=== PATIENT | female | born 1945 | race American Indian/Alaskan Native ===

== ENCOUNTER 2018-08-13 12:30 | Emergency (ER) | payer BC, OTHER ==
[~2018-08-13] VITALS: Ht 160 cm; Wt 97.7 kg
[~2018-08-13 12:30] MED LIST: ASPIR-LOW81 MG PO; BACTRIM DS TAB1 EACH PO; CALCIUM + VITA1 EACH PO; FERROUS SULFAT325 MG; GLUCOPHAGE XR500 MG; GLUCOPHAGE500 MG PO; LANTUS SOL100 UNIT/1 SUB-Q; LIPITOR20 MG PO; NORCO 5-325 TA1 EACH PO; OMEPRAZOLE20 MG PO
[2018-08-13] MEDS ORDERED: FLAGYL500 MG PO (15:32)
[2018-08-13] MEDS ORDERED: LOMOTIL TABLET1 EACH PO (15:33)
== END 2018-08-13 15:50 | disposition home or self-care (01) ==
LOC: ED 12:30
DX: R19.7 Diarrhea, unspecified (principal); E11.9 Type 2 diabetes mellitus without complications; D64.9 Anemia, unspecified; Z88.8 Allergy status to other drugs, medicaments and biological substances; Z88.5 Allergy status to narcotic agent; Z88.6 Allergy status to analgesic agent; Z91.041 Radiographic dye allergy status; Z91.09 Other allergy status, other than to drugs and biological substances; Z79.4 Long term (current) use of insulin; Z79.82 Long term (current) use of aspirin; Z79.899 Other long term (current) drug therapy
CPT/HCPCS: 36415; 74022; 80053; 81001; 83690; 85025; 87045; 87046; 87205; 87493; 96360; 99284-25; J7030

== ENCOUNTER 2018-10-19 08:45 | Day surgery (SDC) | payer BC, OTHER ==
[~2018-10-19] VITALS: Ht 160 cm; Wt 104.3 kg
[~2018-10-19 08:45] MED LIST changes: +B-12 DOTS500 MCG PO; +COL-RITE100 MG PO; +FLAGYL500 MG PO; +LOMOTIL TABLET1 EACH PO; +MAGNESIUM250 MG PO; +METOPROLOL TART25 MG PO; +NAPROXEN250 MG PO; +OCEAN BLUE OME350 MG PO; +OCUFLOX5 ML OPTH; +SLOW RELEASE I250 MG PO; +VITAMIN C250 MG PO
--- NOTE | 2018-10-19 10:49 | NUR ---
10/19/18 1049 Sheets,Michaelle 1029 PT ARRIVED TO PACU WITH ORAL AIRWAY IN PLACE AND 10L VIA MASK. PT REACTIVE TO PAINFUL STIMULI AND PT BEGINS TO COUGH. 1030 ORAL AIRWAY REMOVED. PT MOVING ARM WITH BP CUFF, PT UNABEL TO FOLLOW COMMANDS. PT REACHING FOR NOSE AND O2 MASK, RN CONTINES TO REORINT PT TO PACU. PT UNABEL TO OPEN HER EYES, RN HELP PT REDIRECT PT HANDS AWAY FROM FACE. 1036 PT SLIGHTLY MORE AWAKE BUT CONTINUES TO KEEP EYES CLOSED. O2 REMOVED. PT SAYD "BLOW NOSE." RN GIVEN PT TISSUE TO BLOW HER NOSE. RN REORINTED PT TO PACU. PT PULLS OFF O2 SAT, RN PUTS O2 SAT MONITOR BACK ON PT FINGER. 1040 PT DENIES PAIN AND NAUSEA, PT VERY DROWSY AND UNABLE TO KEEP EYES OPEN, RN AGAIN REORITNED PT PACU.
--- NOTE | 2018-10-20 07:29 | OR ---
[facility] [address], [place] [address] Signed DATE OF OPERATION: 10/19/2018 SURGEON: Aleisha Ledesma MD PREOPERATIVE DIAGNOSIS: Recurrent iron deficiency anemia. POSTOPERATIVE DIAGNOSES: 1. Mild patchy hemorrhagic gastritis. 2. Small to moderate sized hiatal hernia. 3. 5 mm polyps at 85, 72, 70, 68, 55, 30, and 10 cm. 4. Minimal moderate internal and external hemorrhoids. PROCEDURES: 1. Esophagogastroduodenoscopy with CLOtest and biopsies of the antrum. 2. Colonoscopy with hot biopsy. ESTIMATED BLOOD LOSS: None. INDICATIONS: Vero is a 73-year-old female, who has recurrent iron deficiency anemia. She has been on iron therapy. She had a full evaluation with [facility] and [facility] in 2004 including upper and lower endoscopy and capsule endoscopy. In 2012 when she had recurrent iron-deficiency anemia. She had repeat upper and lower endoscopy which were unremarkable. She has received IV iron therapy and that helped significantly. She thought she had vaginal bleeding back in 2012, but to her knowledge, never saw a radiology director nor had a hysterectomy. At that time, her hemoglobin was just over 7. It is now just over 11. She does use aspirin on a daily basis for her coronary artery disease. However, I do not see any medication for the stomach neither an H2 magdalene nor a proton pump inhibitor. She also had a CABG with three bypass grafts in 2017. It is not uncommon for patients to be anemic after coming off bypass pump. She also has a lifelong 2/6 systolic ejection murmur and she said it has never bothered her with activities. I am sure she has had an echocardiogram with a cardiac evaluation in the past. Nevertheless, cardiac murmurs can certainly result in anemia. In the office, I had given Vero a booklet on both upper and lower endoscopy. We did review the nature of the 2 tests along with the risks including, but not limited to gas, bloating, crampy abdominal pain, bleeding, perforation, requiring surgery, and missed diagnosis. We also discussed the need for IV conscious sedation. Given her body mass index of 40 and her significant medical issues along with a very full round face, very thick, heavy neck as Electronically Signed By: ALEISHA LEDESMA MD 10/20/18 0729 PATIENT NAME: VERO ROBLES ANN OPERATIVE REPORT DATE OF : 47 REPORT #: [id number] PHYSICIAN: ALEISHA LEDESMA MD PCP: OTHER PCP REPORT IS CONFIDENTIAL AND NOT TO BE RELEASED WITHOUT AUTHORIZATION [address] [address] Signed well as limited range of motion of her neck, we asked for an anesthesia provider to help us with an increased monitoring and sedation with propofol as we have previously. She had expressed understanding and wished to proceed. PROCEDURE NOTE: Vero was taken into endoscopy suite and placed in the supine semi-recumbent position. The posterior oropharynx was anesthetized with Hurricaine spray. A bite block was utilized for the case. She was given IV sedation with propofol per our nurse child nutrition director. The adult gastroscope was introduced and advanced out into the third portion of the duodenum under direct visualization of camera without difficulty. The duodenum was unremarkable. She did have some patchy erythematous changes in the stomach consistent with mild hemorrhagic gastritis. No ulcerations. We took biopsies from the antrum for pathologic review as well as CLOtest. Upon retroflexion of the scope, she has a small to moderate sized hiatal hernia as always. No Doni ulceration. No Hannah-Wilson tear. There are no gastric or esophageal varices. The scope was withdrawn up through the area of the GE junction, which was compliant without stricture. The Z-line shows very minimal disruption. There was no Velez's mucosa, no distal esophagitis. The middle and upper esophagus were unremarkable. After this the gas was suctioned out and the gastroscope removed. Vero tolerated the procedure quite well. Vero was then rotated into the left lateral decubitus position. She was maintained on IV sedation with propofol per our nurse child nutrition director. A digital rectal exam was performed and she does have some small to moderate sized external hemorrhoids. She has good sphincter tone. The adult colonoscope was introduced and advanced all around into the cecum under direct visualization of camera without difficulty. She had a couple of areas of liquid particulate stool matter. Most of that was suctioned out. The scope was slowly withdrawn. The above-mentioned polyps were easily removed with the help of hot biopsy forceps. We saw no diverticulosis. Upon retroflexion of the scope, she does have some minimal to moderate internal hemorrhoids as well. No obvious irritation at this time. After this, the gas was suctioned out. The colonoscope removed. Vero tolerated the lower endoscopy quite well. RECOMMENDATIONS: I will see Vero back in my office in 7 to 14 days to review her results. Aleisha Ledesma MD ALB/MODL Electronically Signed By: ALEISHA LEDESMA MD 10/20/18 0729 PATIENT NAME: VERO ROBLES ANN OPERATIVE REPORT DATE OF : 47 REPORT #: [id number] PHYSICIAN: ALEISHA LEDESMA MD PCP: OTHER PCP REPORT IS CONFIDENTIAL AND NOT TO BE RELEASED WITHOUT AUTHORIZATION [address] [place], [place] [address] Signed /[id number] cc: MD Tejal Summers PA Copies: ALEISHA LEDESMA MD, KRISTIN H PA ~ Electronically Signed By: ALEISHA LEDESMA MD 10/20/18 0729 PATIENT NAME: VERO ROBLES ANN OPERATIVE REPORT DATE OF : 47 REPORT #: [id number] PHYSICIAN: ALEISHA LEDESMA MD PCP: OTHER PCP REPORT IS CONFIDENTIAL AND NOT TO BE RELEASED WITHOUT AUTHORIZATION
== END 2018-10-19 11:23 | disposition home or self-care (01) ==
LOC: DS 08:45 → OPS 08:45
PROVIDERS: Colon & Rectal Surgery
PROC: 0DB78ZX Excision of Stomach, Pylorus, Via Natural or Artificial Opening Endoscopic, Diagnostic (ICD-10-PCS; 2018-10-19)
PROC: 0DBE8ZZ Excision of Large Intestine, Via Natural or Artificial Opening Endoscopic (ICD-10-PCS; principal; 2018-10-19 09:45)
PROC: 0DBP8ZZ Excision of Rectum, Via Natural or Artificial Opening Endoscopic (ICD-10-PCS; 2018-10-19 09:45)
DX: D12.6 Benign neoplasm of colon, unspecified (principal); D12.8 Benign neoplasm of rectum; K63.5 Polyp of colon; K64.8 Other hemorrhoids; E66.9 Obesity, unspecified; K64.4 Residual hemorrhoidal skin tags; K44.9 Diaphragmatic hernia without obstruction or gangrene; K29.51 Unspecified chronic gastritis with bleeding; D50.9 Iron deficiency anemia, unspecified; I10 Essential (primary) hypertension; K21.9 Gastro-esophageal reflux disease without esophagitis; E11.9 Type 2 diabetes mellitus without complications; G47.30 Sleep apnea, unspecified; I25.10 Atherosclerotic heart disease of native coronary artery without angina pectoris; I25.2 Old myocardial infarction; M19.90 Unspecified osteoarthritis, unspecified site; M54.9 Dorsalgia, unspecified; Z88.8 Allergy status to other drugs, medicaments and biological substances; Z88.6 Allergy status to analgesic agent; Z91.041 Radiographic dye allergy status; Z88.5 Allergy status to narcotic agent; Z79.899 Other long term (current) drug therapy; Z79.82 Long term (current) use of aspirin; Z79.84 Long term (current) use of oral hypoglycemic drugs; Z68.41 Body mass index [BMI] 40.0-44.9, adult; Z95.1 Presence of aortocoronary bypass graft
CPT/HCPCS: 86677; J2704; J7120

== ENCOUNTER 2020-07-25 11:07 | Inpatient (IN) | payer BC, MEDICARE, OTHER ==
[~2020-07-25] VITALS: Ht 160 cm; Wt 99.6 kg
[~2020-07-25 11:07] MED LIST changes: -ASPIR-LOW81 MG PO; +LO-DOSE ASPIRIN81 M1 PO
[2020-07-25] MEDS ORDERED: ATORVASTATIN CA80 MG PO (11:32)
--- NOTE | 2020-07-25 15:50 | NUR ---
Called to ED to get report from Isrrael GALINDO. Pt report included: Pt being admitted for SBO, confirmed by JAYDA. Caleb to consult. Pts hx was noted already, DMII-insulin dependent, HTN, Stable angina, hx CABG, hyperlipidemia, obesity, and vitamin D deficiency. Pt has been alert and oriented in the ED, and is a 1PSBA at baseline. Pt has NG tube in place at this time and has had 500mls out. Awaiting covid results before transfer. Will call us when they are ready to bring her over to this unit.
--- NOTE | 2020-07-25 16:00 | NUR ---
Pt delivered to room by Isrrael GALINDO from the ED. Pt alert but groggy, oriented x4, VSS. Pt complains of minimal pain in her nose from the NG tube. Pt later reports 7/10 pain in her abdomen that is intermittent. Pt had some nausea during transfer, which resolved nearly as soon as the suction was attached in room. Pt assessment complete and intake forms completed. Pt IV fluids started. Pt positioned in bed, to comfort. Pt educated on use of the call light and safety protocols. Pt in bed, side rails up x3, table and call light withn reach.
--- NOTE | 2020-07-25 17:50 | NUR ---
Med pass completed. Pt able to take all meds without difficulty. Pt CBG was 165 so 1 unit insulin given per sliding scale orders. Pt reports minmal pain in her abdomen. Pt still groggy, keeping her eyes closed most of the time and speaking very slowly and quietly. Pt denies nausea at this time. Pt VSS, pt in bed, side rails up x3, table and call light within reach. Pt saturation is 95% on RA and SCDs in place.
--- NOTE | 2020-07-25 18:16 | NUR ---
PT CALL LIGHT ON. PT REPORTS 8/10 "BURNING" PAIN IN UPPER MIDLINE ABDOMEN. SEE MAR FOR MEDICATION GIVEN. NG TUBE REMAINS IN PLACE TO LOW INTERMITTANT SUCTION. PT DENIES ADDTIONAL REUQESTS OR CMOPLAINTS AT THIS TIME. PT CONTINUES TO REPORT NASUEA. DRY HEAVES NOTED. SEE MAR FOR MEDICATION GIVEN. ORAL CARE DONE. MOUTH WASH PROVIDED. PT DENEIS ADDITIONAL REQUESTS OR COMPLAINTS. CALL LIGHT WITHIN REACH. BED RAILS UP.
--- NOTE | 2020-07-25 19:00 | NUR ---
RECEIVED REPORT FROM MATEO SANTOS. pt RESTING IN BED. NO REQUESTS AT THIS TIME. PROVIDED ORAL SWABS. CALL LIGHT WITHIN REACH. WHITEBOARD UPDATED.
--- NOTE | 2020-07-25 21:14 | NUR ---
IN TO DO ASSESSMENT. pt RESTING IN BED. DENIES PAIN AT THIS TIME. NG TUBE TO LIS. MARSHALL REMAINS AT LEFT NARE. BROWN OUTPUT. MEDICATIONS GIVEN (SEE MAR). VITALS DONE. BP RECHECKED POST IV LOPRESSOR. pt UP TO VOID. BACK TO BED. SBA. 50 NG FLUSH TO CLEAR TUBE. NGT BACK TO LIS. SCDS ON. IV INFUSING. ASSESSMENT DONE. PROVIDED ORAL SWABS. NO FURTHER REQUESTS WITHIN REACH. CALL LIGHT IN HAND.
--- NOTE | 2020-07-25 23:37 | CONS ---
[facility] [address] [place], [place] [address] Signed DATE OF CONSULTATION: 07/25/2020 CHIEF COMPLAINT: Periumbilical abdominal pain with nausea and vomiting. HISTORY OF PRESENT ILLNESS: Vero is a 75-year-old obese diabetic female with prior abdominal surgery to include an open cholecystectomy through a right subcostal incision as well as an open bilateral tubal ligation through a lower midline incision. For the last day and a half, she has had periumbilical and lower abdominal pain with nausea and vomiting. She went to the [facility] earlier today. She was obviously feeling under the weather and not as energetic as usual. Very difficult to assess her abdomen based on her body mass index. Consequently, she had been sent over to the [facility] emergency room for evaluation. Repeat white blood cell counts about the same 11.4. She also received her COVID vaccine back on 07/21/2020. In the meantime, CT scan has been performed and she does have a dilated small bowel about 6 cm in diameter with feculent material. The distal terminal ileum is decompressed. She has an infraumbilical incisional hernia about a 7 mm fascial defect with fat coming through it. I have been asked to see her as a general surgeon on-call here in the emergency room. In the meantime, our internal medicine service has seen her as well. She just had an NG tube placed and she has over 400 mL of moderately dark bilious gastric fluid removed. PAST MEDICAL HISTORY: Type 2 diabetes, GI bleed, anemia, hyperlipidemia, obesity, coronary artery disease, stress urinary incontinence, low vitamin D levels, low iron levels, hypertension, atrophic vaginitis, lower extremity edema, carpal tunnel syndrome, gastroesophageal reflux disease, obstructive sleep apnea, dry eyes, glaucoma and macular degeneration. PAST SURGICAL HISTORY: Includes upper and lower endoscopy in 2007, 2012 and 2018. She had her CABG in 2015, neck fusion in 2006, an open cholecystectomy through a right subcostal incision and open bilateral tubal ligation through a lower midline incision. She has had cataract surgery. SOCIAL HISTORY: She does not smoke or drink. She attends the [employer] with . Christian is her son at [phone]. FAMILY HISTORY: Mother had diabetes and uterine cancer. A sister had breast cancer. REVIEW OF SYSTEMS: She had 10 systems reviewed and unfortunately, she was not very helpful today. It seems Electronically Signed By: ALEISHA LEDESMA MD 07/25/20 2337 PATIENT NAME: VERO ROBLES CONSULTATION DATE OF : 47 REPORT #: [id number] PHYSICIAN: ALEISHA LEDESMA MD PCP: [facility] REPORT IS CONFIDENTIAL AND NOT TO BE RELEASED WITHOUT AUTHORIZATION [address] [address] Signed her energy levels are a bit low. Most of her records are reviewed from the [facility] as well as here in the emergency room. We know she did receive the COVID vaccine on 07/21/2020. ALLERGY: , pseudoephedrine., iodinated contrast, codeine, and NSAIDs apparently caused bleeding and clotrimazole. MEDICATIONS: 1. Insulin. 2. Calcium. 3. Vitamin D. 4. Aspirin. 5. Metformin. 6. Vitamin C. 7. Magnesium oxide. 8. Metoprolol. 9. Ofloxacin eyedrops. 10. Atorvastatin. 11. Zyrtec. 12. Iron. 13. Vitamin B12. 14. Moorcroft-3. 15. Potassium chloride. PHYSICAL EXAMINATION: VITAL SIGNS: Her blood pressure is 158/63, heart rate 73, respiratory rate 16, temperature is 98.4. She is 98% on room air she is 5 feet 3 inches at 92 kg. GENERAL: Vero is a 75-year-old female sitting supine semi-recumbent in the ER bed. Her NG tube Is in place with moderately dark bilious gastric fluid in the canister, probably 400 mL or so. She really was not wanting to open her eyes or talk much. LUNGS: Clear to auscultation bilaterally. HEART: Regular rate and rhythm without murmurs. ABDOMEN: Obese but soft. She points to tenderness actually in the epigastric area currently. LABORATORY DATA: Her white blood count is 11.4, hemoglobin 13 neutrophils 89. BUN 20, creatinine 0.66, glucose 243. Liver function tests are negative. Albumin is 4.2, lipase 6. Troponin is negative. Urinalysis negative. Her COVID is pending. Her hemoglobin A1c was 8.9. RADIOGRAPHIC STUDIES: A CT scan of the abdomen and pelvis shows that she has a normal decompressed terminal ileum, but the jejunum and proximal small bowel is distended up to 6 cm with feces. She Electronically Signed By: ALEISHA LEDESMA MD 07/25/20 4138 PATIENT NAME: VERO ROBLES ANN CONSULTATION DATE OF : 47 REPORT #: [id number] PHYSICIAN: ALEISHA LEDESMA MD PCP: [facility] REPORT IS CONFIDENTIAL AND NOT TO BE RELEASED WITHOUT AUTHORIZATION [address] [address] Signed also has an infraumbilical hernia containing fat about 7 mm fascial defect. ASSESSMENT AND PLAN: Vero is a 75-year-old female, who presents with small bowel obstruction, most likely from the open bilateral tubal ligation. At this point, she is going to be admitted and treated conservatively with NG tube decompression, IV fluids, pain control, and I think we will go ahead and start some antibiotics as well. We will reassess her in the morning and if she does not improve in the next day or two, she will need surgery to address the small bowel obstruction. I have reviewed this with Vero in detail. She has expressed understanding and agrees with the above plan. MD MONSERRAT Summers/JUDITH /[id number] cc: Copies: ~ Electronically Signed By: ALEISHA LEDESMA MD 07/25/20 2337 PATIENT NAME: VERO ROBLES ANN CONSULTATION DATE OF : 47 REPORT #: [id number] PHYSICIAN: ALEISHA LEDESMA MD PCP: [facility] REPORT IS CONFIDENTIAL AND NOT TO BE RELEASED WITHOUT AUTHORIZATION
--- NOTE | 2020-07-25 23:49 | NUR ---
IN TO CHECK ON pt AND REMOVE NITRO PATCH. pt REPORTED 6/10 PAIN. NITRO PATCH REMOVED FROM LEFT SHOULDER, PRN PAIN MEDICATION GIVEN (SEE MAR). pt FEELING NAUSEOUS, VOMITTED. FLUSHED NG TUBE, OUTPUT THICK REQUIRED FLUSH TO MOVE THROUGH TUBE. pt REPORTED NAUSEA GONE AFTER FLUSHING. pt UP TO TOILET. LINENS CHANGED. BACK TO BED. SBA. SETTLED IN BED. OUTPUT MOVING IN NG TUBE. pt REQUESTED PRN NAUSEA MEDICATION. GIVEN (SEE MAR). CALL LIGHT WITHIN REACH.
--- NOTE | 2020-07-26 00:18 | NUR ---
CALL LIGHT ON. pt REPORTED NAUSEA. FLUSHED NG TUBE, pt REPORTED IMPROVEMENT IN NAUSEA WITH FLUSHING. NG TUBE ON LIS. CALL LIGHT WITHIN REACH.
--- NOTE | 2020-07-26 00:55 | NUR ---
CALL LIGHT ON. pt REPORTED NAUSEA "ON AND OFF" FLUSHED NG TUBE. PRN NAUSEA MED GIVEN (SEE MAR). pt REPORTED "MY PAIN WENT DOWN." DENIES NEED FOR PAIN MEDICATION AT THIS TIME. CALL LIGHT WITHIN REACH. IVF INFUSING. NGT TO LIS.
--- NOTE | 2020-07-26 02:17 | NUR ---
IN TO GIVE MEDICATIONS. pt VERY DROWSY, RESPONDED APPROPRIATELY. BLOOD SUGAR WITHIN RANGE. IV BP MED GIVEN (SEE MAR). VITALS DONE. ASSESSMENT DONE. pt DENIES NAUSEA AND PAIN AT THIS TIME. NO REQUESTS CALL LIGHT WITHIN REACH.
--- NOTE | 2020-07-26 03:33 | NUR ---
CALL LIGHT ON. pt REQUESTED PRN PAIN MEDS FOR 8/10 PAIN, GIVEN (SEE MAR). NO FURTHER REQUESTS AT THIS TIME. CALL LIGHT WITHIN REACH. NG TUBE TO LIS, NO CHANGE NOTED IN PLACEMENT.
--- NOTE | 2020-07-26 04:26 | NUR ---
ROUNDED ON pt. RESTING IN BED WITH EYES CLOSED, RESPIRATIONS REGULAR AND UNLABORED. CALL LIGHT WITHIN REACH. NG TUBE IN PLACE TO LIS.
--- NOTE | 2020-07-26 06:30 | NUR ---
IN TO DO MORNING VITALS. LAB DRAW COMPLETED. pt REPORTED 5/10 PAIN "IT'S JUST STARTING TO GO UP" PRN PAIN MED GIVEN ALONG WITH PRN NAUSEA MED (SEE MAR). NG TUBE REMAINS IN PLACE, FLUSHED. NEW SUCTION CANISTER. VITALS DONE. I&O RECORDED. NO REQUESTS AT THIS TIME. pt REMAINS IN BED WITH EYES CLOSED. CALL LIGHT WITHIN REACH.
--- NOTE | 2020-07-26 07:18 | NUR ---
pt sleeping soundly at time of bedside report. appears comfortable scd's in place iv infusing. left undisturbed
--- NOTE | 2020-07-26 09:18 | NUR ---
DR LEDESMA IN TO SEE PT DISCUSSES LIKELY DEAL OF SURGERY. STATES HE WILL RUN FURTHER TEST TOMORROW. PT DENIES FURTHER QUESTIONS VERBALIZES UNDERSTANDING
--- NOTE | 2020-07-26 11:02 | NUR ---
PT UP TO SHOWER PERFORMS ALL A.M. CARES. PT TO RECLINER TO WATCH TV. FRESH LINENS ON BED. ALL NEEDED ITEMS IN REACH PT DENIES DISCOMFORTS OR NEEDS OF
--- NOTE | 2020-07-26 11:47 | NUR ---
REPORT RECEIVED FROM MATEO BROTHERS. THIS RN ASSUMING CARE OF PT.
--- NOTE | 2020-07-26 11:50 | NUR ---
THIS RN TO ROOM TO CHECK ON PT. ASSESSMENT DUE. PT UP TO CHAIR, RESTING WITH EYES CLOSED. RESPIRATIONS EVEN AND UNLABORED. NG TUBE TO LOW INTERMITTANT SUCTION. SMALL AMOUNT OF CLEAR, LIGHT BROWN FLUID (<100ML) NOTED IN CANISTER. PT AWAKENS TO VOICE. ASSESSMENT DONE. COURSE LUNG SOUNDS NOTED IN LOWER LOBES OF LUNGS, PT ENCOURAGED TO COUGH. WEAK COUGH NOTED. PT DENIES PAIN AND NAUSEA AT THIS TIME STATING HEADACHE IS "PRETTY MUCH GONE" AND "MY STOMACH DOESN'T HURT RIGHT NOW." +1 PITTING EDEMA NOTED TO BLE, PT STATES EDEMA IS PER BASELINE. ICE CHIPS PROVIDED PER PT REQUEST, STATES OK FOR PT TO HAVE SMALL AMOUNTS OF ICE CHIPS. PT REQUESTS HER FAMILY MEMBER, LEV, BE CALLED AND UPDATED. THIS RN WILL CALL. NO ADDITIONAL REQUESTS OR COMPLAINTS. PT RETURNS TO RESTING WITH EYES CLOSED, RESPIRATIONS EVEN AND UNLABORED. CALL LIGHT WITHIN REACH.
--- NOTE | 2020-07-26 12:56 | NUR ---
CALL PLACED, PER PT REQUEST TO LEV, PTS FAMILY. NO ANSWER AT THIS TIME. PT CONTINUES RESTING IN CHAIR WITH EYES CLOSED. RESPIRATIONS EVEN AND UNLABORED. NG TUBE TO LOW INTERMITANT SUCTION WITH CLEAR TO LIGHT BROWN DRAINAGE. PT ALLOWED TO REST. CALL LIGHT WITHIN REACH.
--- NOTE | 2020-07-26 13:11 | NUR ---
LEV, RETURNED CALL. LEV UPDATED ON PTS STATUS. LEV REPEATS BACK VERBALIZED PLAN OF CARE AND STATES HER QUESTIONS HAVE BEEN ANSWERED. LEV STATES SHE WILL BE UPDATING THE REST OF THE FAMILY.
--- NOTE | 2020-07-26 13:29 | NUR ---
MEDICATION AND BLOOD SUGAR ASSESSMENT DUE. PT RESTING IN CHAIR WITH EYES CLOSED, RESPIRATIONS EVEN AND UNALBORED. PT AWAKENS TO MOVEMENT IN ROOM. CBG = 121. NO SLIDING SCALE INSULIN INDICATED. LONG ACTING INSULIN GIVEN PER MD ORDER. VITALS TAKEN, WNL. MEDICATION GIVEN. NEW IV FLUID BAG HUNG. PT UPDATED ON PLAN OF CARE AND THAT HER FAMILY, LEV, WAS UPDATED PER HER REQUEST. PT CONTINUES RESTING WITH EYES CLOSED. MINIMAL CLEAR DRAINAGED NOTED FROM NG TUBE WHICH REMAINS AT LOW INTERMITTANT SUCTION. CALL LIGHT WITHIN REACH. NO ADDITIONAL REQUESTS OR COMPLAINTS.
--- NOTE | 2020-07-26 14:27 | NUR ---
THIS RN TO ROOM TO CHECK ON PT. PT CONTINUES RESTING IN CHAIR WITH EYES CLOSED. RESPIRATIONS EVEN AND UNLABORED. CALL LIGHT WITHIN REACH. PT ALLOWED TO REST.
--- NOTE | 2020-07-26 14:37 | NUR ---
IV ABX DUE. STARTED ORDERED. PT CONTINUES RESTING WITH EYES CLOSED. RESPIRATIONS EVEN AND UNLABORED. PT AWAKENS WHEN PHONE RINGS. PT TALKING ON PHONE WITH FAMILY. CALL LIGHT WITHIN REACH. PT DENIES REQUESTS OR COMPLAINTS.
--- NOTE | 2020-07-26 15:23 | NUR ---
PUMP ALARMING, "DISTAL OCCLUSION." IV ASSESSED, FLUSHES EASILY, BRISK BLOOD RETURN NOTED. INFUSION RESTARTED, NO ALARM NOTED. PT CONTINUES RESTING WITH EYES CLOSED, RESPIRATIONS EVEN AND UNLABORED. CALL LIGHT WITHIN REACH. PT ALLOWED TO REST.
--- NOTE | 2020-07-26 16:04 | NUR ---
AFTERNOON ASSESSMENT DUE. PT RESTING WITH EYES CLOSED, RESPIRATIONS EVEN AND UNLABORED. PT AWAKENS TO VOICE. 1 PERSON ASSIST UP TO RESTROOM. PT VOIDS 300ML CONCENTRATED CLEAR YELLOW URINE. FORD CARE DONE. SKIN INTACT IN FORD AREA. 1 PERSON ASSIST BACK TO CHAIR. ASSSESSMENT DONE. LUNGS SOUNDS NOW CLEAR. COUGH AND DEEP BREATHING ENCOURAGED. ABDOMEN SOFT. MINIMAL BOWEL TONES. PT REPORTS "SOMETIMES" PAIN IN HER MIDABDOMEN. NONE AT THIS TIME. HEART TONES REGULAR. PT DENIES CHEST PAIN. +1 EDEMA CONTINUES IN BLE. VITALS SIGNS STABLE. 150ML CLEAR TO LIGHT BROWN FLUID RECORDED OUT PUT FOR NG TUBE THIS SHIFT. WARM BLANEKTS PROVIDED FOR PT. PT DENIES ADDITIONAL REQUESTS OR COMPLAINTS AT THIS TIME. CALL LIGHT WITHIN REACH. PT RESUMES RESTING WTIH EYES CLOSED.
--- NOTE | 2020-07-26 17:04 | NUR ---
PT HERE FOR SMALL BOWEL OBSTRUCTION. PT UP TO CHAIR AND RESTROOM WITH 1 PERSON ASSIST THIS SHIFT, STEADY ON FEET WITH MINOR GENERALIZED WEAKNESS. PT REMAINS NPO WITH ICE CHIPS FOR COMFORT. NG TUBE IN PLACE TO LOWER INTERMITTANT SUCTION. 150ML OF CLEAR LIGHT BROWN LIQUID NOTED THIS SHIFT. MINIMAL PAIN AND NAUSEA THIS SHIFT WITH NO PRN MEDICATIONS NEEDED UP TO THIS POINT. HEADACHE NOTED, PT ATTRIBUTES TO LACK OF CAFFEEN. Q6 HOUR BLOOD SUGAR CHECKS WITHIN NORMAL RANGE, NO SLIDING SCALE INUSLIN NEEDED. NITRO PATCH TO LEFT SHOULDER, PT DENIES ANGINA THIS SHIFT. SHOWER THIS MORNING. PT VOIDING QUANTITY SUFFICIENT. SMALL BOWEL FOLLOW THROUGH PLANNED FOR TOMORROW. PTS FAMILY UPDATED ON PLAN OF CARE. PT USES CALL LIGHT APPROPRIATLY.
--- NOTE | 2020-07-26 18:05 | NUR ---
THIS RN TO ROOM TO CHECK ON PT. 1 PERSON ASSIST BACK TO BED. PT DENIES PAIN AND NAUSEA. NG TUBE REMAINS TO LOWER INTERMITTANT SUCTION WITH MINIMAL CLEAR TO LIGHT BROWN FLUID NOTED. WARM BLANKETS PROVIDED. BELONGINGS WITH IN REACH. CALL LIGHT WIHTIN REACH. BED RAILS UP. PT DENIES ADDITIONAL REQUESTS OR COMPLAINTS AT THIS TIME.
--- NOTE | 2020-07-26 19:20 | NUR ---
RECEIVED REPORT FROM MATEO TRIANA. pt RESTING IN BED WITH EYES CLOSED. NG TUBE TO LIS. CALL LIGHT WITHIN REACH. WHITEBOARD UPDATED.
--- NOTE | 2020-07-26 20:00 | NUR ---
in pt rm to sba pt to the toilet, tolerates well, ng tube working normally at this time, intermediate suct, void recorded on sheet, 300ml dark yelllow, no further needs at this time
--- NOTE | 2020-07-26 20:30 | NUR ---
IN TO DO ASSESSMENT. pt RESTING IN BED. RECENTLY BACK FROM VOIDING, SBA. NG TUBE TO LIS, BROWNISH, YELLOW OUTPUT, TRANSPARENT. pt DENIED NAUSEA, REPORTED 5/10 PAIN. PRN GIVEN (SEE MAR). VITALS DONE. I&O RECORDED. SCHEDULED MEDICATION GIVEN. ASSESSMENT DONE. BOWEL TONES RARE. NO REQUESTS AT THIS TIME. CALL LIGHT WITHIN REACH.
--- NOTE | 2020-07-26 21:40 | NUR ---
IV PUMP BEEPING. ERROR RESOLVED. pt DENIED PAIN AT THIS TIME. CALL LIGHT WITHIN REACH.
--- NOTE | 2020-07-27 00:50 | NUR ---
PATIENT IN HIGH FOWLERS POSITION AT THIS TIME. EYES CLOSED, RESPIRATIONS REGULAR AND EVEN. CALL LIGHT IN REACH.
--- NOTE | 2020-07-27 02:10 | NUR ---
PATIENT HAS BEEN RESTING QUIETLY, AWAKENED FOR BLOOD SUGAR, VS, AND MEDS. PATIENT HAS NO C/O PAIN, NG TO LIWS WITH GREE DRAINAGE COMING OUT. PATIENT HAS NO NEEDS AT THIS TIME, CALL LIGHT IN REACH.
--- NOTE | 2020-07-27 03:57 | NUR ---
PATIENT RESTING QUIETLY IN HIGH FOWLERS POSITION, EYES CLOSED, RESPIRATIONS REGULAR AND EVEN, CALL LIGHT IN REACH.
--- NOTE | 2020-07-27 06:38 | NUR ---
PATIENT JUST BACK FROM THE BATHROOM AND VOIDED 450MLS. NG-REMAINS TO LIWS. IV INFUSING WITHOUT DIFFICULTY. VS HAVE BEEN STABLE HAVE BLOOD SUGARS. SCD'S IN PLACE PATIENT TRYING TO GET SOME MORE SLEEP. RARE BOWEL TONES EXCEPT FOR ACTIVE TONES IN THE LLQ. CALL LIGHT IS IN REACH.
--- NOTE | 2020-07-27 08:30 | NUR ---
PT OFF FLOOR TO IMAGING.
--- NOTE | 2020-07-27 09:00 | NUR ---
IMAGING IN TO ADMISNTER CONTRAST. PT REPORTS SOME ABDOMINAL PAIM .NO NASUEA.
--- NOTE | 2020-07-27 09:11 | NUR ---
PATIENT UP IN CHAIR, VITALS AND I&OS CHARTED. LINENS CHANGED. CALL LIGHT IN REACH, NO OTHER NEEDS AT THIS TIME
--- NOTE | 2020-07-27 09:37 | NUR ---
PT REPORTING 6/10 ABDOMINAL PAIN. 0.3 DILAUDID ADMNISNTERED. PT OFF FLOOR TO IMAGINE.
--- NOTE | 2020-07-27 10:16 | NUR ---
PT C/O NASUEA. 8MG ZOFRAN ADMINSTERED. PT HOOKED BACK UP TO ABX ABND IV FLUIDS. CALL LIGHT IN REACH.
--- NOTE | 2020-07-27 12:22 | NUR ---
PT PAIN AND NAUSEA UNRELIEVED BY 0.8 MG OF DILAUDID AND 8 MG ZOFRAN. SMALL BOWEL OBSTRUCTION F/U COMPLETE AND DR. LEDESMA CALLED FOR PERMISSION TO HOOK PT BACK UP TO LOW INTERMITTENT SUCTION.
--- NOTE | 2020-07-27 12:46 | NUR ---
CALL MADE TO SON KOSTA TO UPDATE ON SURGERY PLAN.
--- NOTE | 2020-07-27 13:34 | NUR ---
PT OFF FLOOR TO SURGERY.
--- NOTE | 2020-07-27 16:00 | NUR ---
REPORT CALLED TO CCU MATEO ALVARADO. PT BELONGINGS TAKEN TO ROOM 129.
--- NOTE | 2020-07-27 17:56 | NUR ---
07/27/20 1756 Emmy Oates 1705 PT ARRIVED IN PACU SLEEPY WITH NO C/O'S. 1715 XRAY IN ROOM. CENTRAL LINE PLACEMENT CONFIRMED. BLOOD SUGAR 170 ON ARRIVAL. 1730 RESTING. REU. 1746 C/O ABD PAIN 10/10. FENTANYL 50MCG GIVEN IVP. 1755 PAIN DOWN TO 8/10. FENTANYL 50MCG GIVEN IVP.
--- NOTE | 2020-07-27 18:15 | NUR ---
Report received from MATEO Mai. Care of patient assumed. Patient sleeping in bed on 3LNC. SpO2 of 97%, respirations even and unlabored. Vital signs taken, assessment complete. Rare bowel tones ausculated on right side and LLQ. Hypoactive bowel tones heard in LUQ. Midline incision is covered with guaze and tape, dressing is C/D/I. Merrill underneath dressing. Lung sounds clear. Nitro patch on left shoulder. Patient reports pain of 3/10, which is tolerable. Patient oriented to self, location, and event. Wet sponges provided for oral care. Patient falls back asleep easily. LR infusing at 100 mls/hr. Call light within reach.
--- NOTE | 2020-07-27 18:21 | NUR ---
Dr. Duran in room to assess patient and discuss POC
--- NOTE | 2020-07-27 19:31 | NUR ---
REPORT RECIEVED, CARE OF PATIENT ASSUMED AT THIS TIME. IN ROOM TO CHECK ON PATIENT. SHE AWAKENS TO VOICE, ALERT AND ORIENTED. COMPLAINS OF FEELING COLD. WARM BLANKETS PROVIDED. DENIES PAIN AT THIS TIME. LR INFUSING. WILL CONTINUE TO MONITOR.
--- NOTE | 2020-07-27 20:09 | NUR ---
ASSESSMENT COMPLETED AT THIS TIME. PT ALERT AND ORIENTED, ASKING QUESTIONS ABOUT SURGERY. PT STATES HER PAIN IS AT A MANAGABLE LEVEL. HYPOACTIVE BOWEL TONES EXCEPT IN LUQ, WHERE BOWEL TONES ARE ACTIVE. DRESSING OVER MIDLINE INCISION IS CLEAN, DRY AND INTACT. ABDOMEN MILDLY DISTENDED. LUNGS SOUND CLEAR. VITAL SIGNS WNL. URINE OUTPUT 50 MLS FOR THE LAST HOUR. PLAN OF CARE OF EVENING ESTABLISHED, PTS SISTER UPDATED PER PT REQUEST. CALL LIGHT WITHIN REACH. IV FLUIDS INFUSING. WILL CONTINUE TO MONITOR.
--- NOTE | 2020-07-27 20:34 | NUR ---
pt reports pain she rate 6/10. 0.5 mg iv dilaudid given at this time (see emar). will continue to monitor.
--- NOTE | 2020-07-27 21:00 | NUR ---
hourly output recorded, 65ccs of clear yellow urine. pt requested mouth swabs and two extra pillows for comfort. Nothing further needed at this time.
--- NOTE | 2020-07-27 21:42 | NUR ---
IN ROOM FOR MEDICATION ADMINISTRATION. PT REPORTS PAIN HAS DECREASED TO 4/10 AT THIS TIME. IV ABX AND FLUIDS INFUSING. DENIES FURTHER NEEDS AT THIS TIME
--- NOTE | 2020-07-27 22:30 | NUR ---
pt is dry heaving and nauseated. prn medication given at this time. cool rag applied to forehead.
--- NOTE | 2020-07-27 22:47 | NUR ---
pt reports nausea has resolved. will continue to monitor.
--- NOTE | 2020-07-28 00:42 | NUR ---
assessment completed at this time. pt denies need for pain medication. assisted with repositioning onto right side. activity well tolerated. pt denies nausea. bowel sounds remain hypoactive, lung sounds remain clear. pt denies further needs at this time.
--- NOTE | 2020-07-28 02:30 | NUR ---
in room for medication administration. pt reports pain has decreased since pain medication. denies further needs at this time.
--- NOTE | 2020-07-28 04:46 | NUR ---
Assessment completed. PT complains of 5/10 abdominal pain. prn pain medication administered (see emar). Pt repositioned onto left side well tolerated by pt. left hand IV dc'd per patient request. call light within reach. no further needs at this time.
--- NOTE | 2020-07-28 05:45 | NUR ---
pt awake in room watching television. denies pain or discomfort. labs drawn. Central line heparin locked. no further needs at this time.
--- NOTE | 2020-07-28 07:30 | NUR ---
Report received, orders acknowledged. Patient sleeping in bed, respirations even and unlabored. 1.5LNC in place, SpO2 of 99%. Call light within reach.
--- NOTE | 2020-07-28 08:00 | NUR ---
Patient reports nausea, prn antiemetic given (see MAR)
--- NOTE | 2020-07-28 08:59 | OR ---
[facility] [address], [place] [address] Signed DATE OF OPERATION: 07/27/2020 SURGEON: Aleisha Ledesma MD PREOPERATIVE DIAGNOSES: 1. Distal small bowel obstruction. 2. Infraumbilical and supraumbilical incisional hernias x2. 3. Acute malnutrition. POSTOPERATIVE DIAGNOSES: 1. Distal small bowel obstruction. 2. Infraumbilical and supraumbilical incisional hernias x2. 3. Acute malnutrition. PROCEDURES: 1. Laparotomy with lysis of adhesions. 2. Small bowel resection with end-to-end anastomosis (18-24 cm proximal to terminal ileum). 3. Primary repair incisional hernias x2. 4. Placement of right subclavian triple-lumen catheter. ESTIMATED BLOOD LOSS: Minimal. FINDINGS: Vero had her small bowel obstruction around 18-24 inches proximal to the terminal ileum from adhesions. She had other adhesions as well. We ran the small bowel from the ileocecal valve all the way back to the ligament of Treitz. INDICATIONS: Vero is a 75-year-old obese female, who has had previous abdominal surgery to include an open cholecystectomy as well as an open bilateral tubal ligation. She has also had a previous neck fusion. She had stomach pain for about a day and a half with some nausea and vomiting. She gone to the [facility]. They asked her to come to our local emergency room at [facility]. White count was borderline at 11.4 with other labs unremarkable. However, the CT scan did show the decompressed terminal ileum with a distal small bowel obstruction and feces through the dilated mid to proximal small bowel, the small bowel being about 6 cm in diameter. One could also see an infraumbilical hernia containing fat. She had been admitted as above to my service. We had our hospital service see her as well. She has been placed on antibiotics and IV Electronically Signed By: ALEISHA LEDESMA MD 07/28/20 0859 PATIENT NAME: VERO ROBLES ANN OPERATIVE REPORT DATE OF : 47 REPORT #: [id number] PHYSICIAN: ALEISHA LEDESMA MD PCP: [facility] REPORT IS CONFIDENTIAL AND NOT TO BE RELEASED WITHOUT AUTHORIZATION [facility] [address], [place] [address] Signed fluids as well as pain control. Diabetes and high blood pressure under control as well. I met with her yesterday on and we talked about her findings. She is well aware from admission that she is more likely going to have surgery. We did do a small bowel follow-through this morning, and of course the bowel is still dilated and none of the contrast made into the colon after more than 3 hours. I had met with Vero earlier this morning, and again here in mid day. I reviewed with her the above findings in detail. I have contacted her son, Christian twice on the telephone. I explained the Vero we were going to need to do a laparotomy with lysis of adhesions and possible small bowel obstruction and based on intraabdominal findings, she might need central venous access based on expected length of postoperative course and need for monitoring and nutrition, and so forth. I reviewed the surgery with her in detail. She understands there is risk including, but not limited to bleeding, infection, scarring, change in contour of the skin, damage to bowel, anastomotic leak, incisional hernias, and other unforeseen comorbidities. She had expressed understanding and wished to proceed. PROCEDURE NOTE: Vero was taken into the operating room and placed in the supine position under general endotracheal tube anesthesia. She was already on preoperative antibiotics. She was already on her preoperative Lovenox. She had SCDs in place. Montgomery catheter was inserted with return of clear yellow urine. She was then prepped and draped in usual sterile fashion. We used a standard periumbilical midline incision and carried that into the abdomen with the help of the cautery. It took a few minutes to lyse some adhesions from the omentum. There was just a small 3-4 cm length rent in the omentum, so we closed with a running 0-Vicryl suture. She had some adhesions of the omentum down around the cecum and those were divided as well with the help of the cautery. Similar adhesions on the left side of the abdominal wall down near the pelvis. Once that was free, we were able to access the small bowel and we brought the small bowel up and out of the pelvis and divided interloop adhesions as we went with the help of the cautery. About 18-24 cm proximal to the ileocecal valve, we found two circular areas, chronic and quite fibrotic representing stenotic areas where she had adhesions. We did not feel those fibrotic rings, were going to dilate whatsoever, so we felt it was necessary to resect that short area may be 3 or 4 cm in length at most. We used our linear stapler to divide the bowel proximal and distal to that area. We then divided the mesentery between Pean clamps and 0-Vicryl ties. The mesentery was brought back together with interrupted silk sutures. We then performed a standard end-to-end anastomosis with Vicryl and silk sutures in two layers. One could easily palpate with the index finger and the thumb, the anastomosis was widely patent. We removed the parveen with the help of the scissors, and we had good bleeding from our the ends of the bowel. It remained edematous, but quite pink and healthy. We did have to run the small bowel from the ligament of Treitz all the way down to remove all the liquid light brown particulate stool matter in order to decompress the bowel to get back into the abdomen, we did the same thing to the terminal ileum, although obviously it was of normal caliber. We Electronically Signed By: ALEISHA LEDESMA MD 07/28/20 0859 PATIENT NAME: VERO ROBLES OPERATIVE REPORT DATE OF : 47 REPORT #: [id number] PHYSICIAN: ALEISHA LEDESMA MD PCP: [facility] REPORT IS CONFIDENTIAL AND NOT TO BE RELEASED WITHOUT AUTHORIZATION [facility] [address] [place] [id number] Signed anticipate she will be here at least a week if not longer. Consequently, we knew she is going to need ICU support and TPN support, so we wanted to place a triple-lumen catheter. We irrigated the bowel as well as the abdominal cavity and suction that out until clear. The bowel was returned to the abdomen. The omentum was placed over the bowel. We very carefully meticulously closed her midline fascia with interrupted [id number] #1 PDS sutures. We had resected the two hernia sacs that had contained omentum. The hernia below the umbilicus was evident on the CT scan. There was a much smaller hernia just above the umbilicus that we found at the time of surgery. After this, we injected local anesthetic into her abdominal wall. The wound was irrigated and suctioned out until clear. We held the umbilicus back down to the midline fascia with an interrupted 2-0 PDS suture. We then reapproximated the dermis with interrupted 3-0 subcuticular Monocryl sutures. The skin edges were reapproximated with parveen. Dry gauze and tape were then applied. After this, the entire field had been taken down. Vero was then placed into the Trendelenburg position and her left neck and chest wall were prepped and draped in the usual sterile fashion. With her body mass index, she has a very short heavy full neck. Consequently, we chose the left subclavian approach. We passed a needle three times underneath the clavicle never access the subclavian vein. Consequently, we abandoned the left subclavian approach. We took down that dressing and completely re-prepped and redraped the right chest wall and right neck. I then was able to find the right subclavian vein on the first pass of the needle and I was able to insert the wire without any resistance, whatsoever. The track was dilated and the dilator had curved in the appropriate direction. The catheter was then placed up to 17 cm on the chest wall and held in place with interrupted silk suture. All three ports were able to draw and flush quite readily dark venous nonpulsatile blood. The additional silk sutures were used to hold the proximal portion of the catheter on the chest wall. The area was cleaned and dressing was applied per nursing staff. After this, Vero was awakened from her anesthesia, extubated in the OR, and taken to the ICU in stable, but serious condition. Aleisha Ledesma MD ALB/MODL /[id number] cc: BURKE Soria Electronically Signed By: ALEISHA LEDESMA MD 07/28/20 0859 PATIENT NAME: VERO ROBLES OPERATIVE REPORT DATE OF : 47 REPORT #: [id number] PHYSICIAN: ALEISHA LEDESMA MD PCP: [facility] REPORT IS CONFIDENTIAL AND NOT TO BE RELEASED WITHOUT AUTHORIZATION [facility] [address], [place] [address] Signed Aleisha Ledesma MD Copies: MIGUEL HUFF ANDREW L MD ~ Electronically Signed By: ALEISHA LEDESMA MD 07/28/20 0859 PATIENT NAME: DEMIAN ROBLESH ANN OPERATIVE REPORT DATE OF : 47 REPORT #: [id number] PHYSICIAN: ALEISHA LEDESMA MD PCP: [facility] REPORT IS CONFIDENTIAL AND NOT TO BE RELEASED WITHOUT AUTHORIZATION
--- NOTE | 2020-07-28 09:00 | NUR ---
Dr. Ellis in room to assess patient and discuss POC. Gauze removed from midline incision, now open to air. Orders acknowledged to D/C abx and only allow a small amount of ice chips. Patient agreeable.
--- NOTE | 2020-07-28 09:15 | NUR ---
Vital signs taken, assessment complete. Patient up to chair with 1PA, weakness noted. Warm blanket provided. NG tube connected to LIWS. Montgomery emptied. Patient denies further needs, call light within reach.
--- NOTE | 2020-07-28 10:00 | NUR ---
Dr. Duran in room to assess patient and discuss POC
--- NOTE | 2020-07-28 10:10 | NUR ---
Patient now on RA, SpO2 of 98%
--- NOTE | 2020-07-28 10:21 | NUR ---
RT in room to perform EKG
--- NOTE | 2020-07-28 11:08 | NUR ---
Patient sitting up in chair with eyes closed, respirations even and unlabored. SpO2 of 90% on RA. Call light within reach.
--- NOTE | 2020-07-28 12:00 | NUR ---
Patient stands up from chair independently, this RN in room to respond. Patient now a 1PA. New linens on bed, patient assisted into bed. NG tube connected to LIWS, draining green/brown bile. Montgomery catheter draining tomás urine. Midline incision is open to air. SCDs in place. Assessment complete. Aspirin suppository given. Warm blankets provided, denies further needs. Call light within reach.
--- NOTE | 2020-07-28 13:50 | EKG ---
[facility] [address] [facility] [place], [place] [address] Signed Normal sinus rhythm Normal ECG When compared with ECG of 06-OCT-2018 09:40, No significant change was found Confirmed by LATOSHA WONG MD ([id number]) on 07/28/2020 1:50:43 PM Electronically Signed By: LATOSHA WONG MD 07/28/20 1350 PATIENT NAME: VERO ROBLES ANN Electrocardiogram DATE OF : 47 PHYSICIAN: LATOSHA WONG MD REPORT #: [id number] REPORT IS CONFIDENTIAL AND NOT TO BE RELEASED WITHOUT AUTHORIZATION
--- NOTE | 2020-07-28 13:52 | EKG ---
[facility] [address] [facility] [place], [place] [address] Signed Normal sinus rhythm Normal ECG When compared with ECG of 25-JUL-2020 11:59, (Unconfirmed) No significant change was found Confirmed by LATOSHA WONG MD ([id number]) on 07/28/2020 1:52:36 PM Electronically Signed By: LATOSHA WONG MD 07/28/20 1352 PATIENT NAME: VERO ROBLES Electrocardiogram DATE OF : 47 PHYSICIAN: LATOSHA WONG MD REPORT #: [id number] REPORT IS CONFIDENTIAL AND NOT TO BE RELEASED WITHOUT AUTHORIZATION
--- NOTE | 2020-07-28 14:15 | NUR ---
New admit to the medical floor. Patient alert and oriented x4. Pt's vs stable; on room air, respirations even and non labored. Triple lumen central line to right chest; dressing cdi and patent at this time. Pt's NG to left nares; LIWS with light brown gastric drainage noted. Patient reports abd pain has improved. Bowel tones hypoactive x4 quadrants. Midline incision well approximated, parveen intact with no drainage noted. Patient denies chest pain, sob and nausea at this time. Oriented patient to room and call light. No needs at this time. Bed alarm intact. Closet to RN station.
--- NOTE | 2020-07-28 15:06 | NUR ---
Patient walked with this RN. SBA with walker x1 lap. Patient did very well. Back to bed after walk. Personal supplies and call light within reach.
--- NOTE | 2020-07-28 16:04 | NUR ---
TPN started using brown port on central line. Verified TPN with charge nurse MATEO Foster. IV fluids discontinued per porivder's order.
--- NOTE | 2020-07-28 16:56 | NUR ---
Patient resting, respirations non labored. Patient has no distress noted. TPN infusing per provider order. No needs at this time. Personal supplies and call light within reach.
--- NOTE | 2020-07-28 16:58 | NUR ---
PATIENT RESTING IN BED, EYES CLOSED. VITAL SIGNS AND I&O DONE. CALL LIGHT WITHIN REACH. NO OTHER NEEDS AT THIS TIME
--- NOTE | 2020-07-28 19:28 | NUR ---
Patient's gastric content is clear looking bubbles. Called Dr. Ellis regarding this. Per Dr. Ellis, he said to change out the gastric container and ensure suction is working appropriately. Dr. Ellis stated ok to irrigate NG, if need be to ensure patency. Patient has no respiratory distress, denies sob and no notable coughing.
--- NOTE | 2020-07-28 19:47 | NUR ---
SHIFT REPORT FROM NURSE BUNDY. PT IS AWAKE IN BED. STATED IN PREVIOUS NOTE, NG TUBE CANISTER HAS CLEAR BUBBLES WITH NO SIGNS OF GASTRIC COLORING. SEE PREVIOUS NOTE RE: CALL TO DR LEDESMA. PT IS BRUSHING TEETH AT THIS TIME. IVF WNL, PT REPORTS TENDERNESS IN ABDOMEN OVER INCISION. PT REPORTS A WARM BLANKET TO THE AREA RELIEVES THE TENDERNESS. PT DENIES FURTHER NEEDS AT THIS TIME. CALL LIGHT WITHIN REACH.
--- NOTE | 2020-07-28 20:00 | NUR ---
IV SITE RIGHT FOREARM D/C'D.
--- NOTE | 2020-07-28 20:28 | NUR ---
2014 PT TELE MONITOR SHOWED 183BPM. IN PT ROOM; PT FEELS SHE CANNOT TALK. PT REPORTS HEADACHE, THROAT PAIN AND CHEST PAIN THAT HAS BEEN COMING AND GOING TODAY. BP 144/75, HR HAS COME DOWN TO 93. DR PINEDA NOTIFIED. DR PINEDA CAME TO THE FLOOR; SEE NEW ORDERS IN EMAR.
--- NOTE | 2020-07-28 20:37 | NUR ---
EKG DONE. HANDED TO DR PINEDA FOR REVIEW. NO NEW ORDERS AT THIS TIME.
--- NOTE | 2020-07-28 20:45 | NUR ---
ASSESSMENT COMPLETE, EVENING MEDS ADMINISTERED. VSS; HR WNL. HADDAD CARE PERFORMED. MIDLINE INCISION INTACT, SCANT SEROSANGUINOUS DISCHARGE. REPOSITIONED PT, EXTRA PILLOWS PROVIDED PER PT REQUEST. CALL LIGHT WITHIN REACH.
--- NOTE | 2020-07-28 20:46 | NUR ---
SVT NOTED ON TELE, HR 180S. RNS IN ROOM, VSS. pt C/O HEAD ACHE, SOME PAIN IN CHEST, STATES "HAVE BEEN HAVING IT FOR A WHILE". IN pt ROOM. EKG COMPLETE BY RNS. VERBAL ORDER FOR IV MG SUPPLEMENT. NG CANNISTER REPLACED. PINK TUBING NOTED TO NOT HAVE WHITE CONNECTOR PIECE. GREEN CONTENT NOTED IN TUBING. PRIMARY RN REMAINS IN ROOM.
--- NOTE | 2020-07-28 21:30 | NUR ---
PT C/O OF PAIN 6/10 HEADACHE AND NECK PAIN. 0.5MG DILAUDID ADMINISTERED IV. PT REPOSITIONED IN BED. CALL LIGHT WITHIN REACH.
--- NOTE | 2020-07-28 22:24 | NUR ---
IN pt ROOM FOR SCHEDULED MEDICATION ADMINISTRATION, pt SLEEPING, AWAKENS TO VOICE AND BACK TO SLEEP. VS WNL. PICC LINE WITH GOOD BLOOD RETURN, SL AFTER MEDICATION ADMINISTRATION. NGT TO LOW INT SUCTION. CALL LIGHT IN REACH.
--- NOTE | 2020-07-28 23:17 | NUR ---
CHECKED ON PT. PT SLEEPING WITH EVEN UNLABORED BREATHING. SPOT SPO2 CHECK 92% RA. NG TUBE NOW HAS GASTRIC COLORED FLUID IN TUBING RATHER THAN BUBBLES. PT AWAKES BRIEFLY THIS NURSE IN ROOM.
--- NOTE | 2020-07-29 00:22 | NUR ---
CALL LIGHT ANSWERED. PT REQUEST TO TURN ON LEFT LATERAL SIDE. THIS NURSE AND FLY SETTER REPOSITIONED PT TO LEFT SIDE. CALL LIGHT WITHIN REACH.
--- NOTE | 2020-07-29 02:19 | NUR ---
IN ROOM TO CHECK ON PT. PT REQUESTS PRN PAIN MEDS. 0.5MG DILAUDID IV ADMINISTERED. 0200 MEDS ADMINISTERED ALONG WITH 5U SS INSULIN FOR A CBG 261. PT REPOSITIONED TO RIGHT TILT SUPINE POSITION. CALL LIGHT WITHIN REACH.
--- NOTE | 2020-07-29 05:22 | NUR ---
IN ROOM TO CHECK NG TUBE OUTPUT. OUTPUT IS MINIMAL. NG TUBE FLUSHED WITH 50ML WATER. SOME RETURN NOTED. PT REPORTS NO NAUSEA. FLUID IN NG CANISTER IS PALE BROWN. PT STATES THAT SHE "FEELS THE TUBE" IN HER CHEST. PT POINTS TO EPIGASTRIC AREA WHEN ASKED TO SHOW WHERE SHE FEELS THE TUBE. PT REQUESTS PRN PAIN MEDICATION FOR 7/10 PAIN "ALL OVER FACE" AND NECK. 0.5MG IV DILAUDID ADMINISTERED. BOWEL TONES HYPOACTIVE. PT REPORTS NO FLATUS. IV TPN WNL. LARGE URINE OUTPUT. MIDLINE INCISION CDI. CALL LIGHT WITHIN REACH.
--- NOTE | 2020-07-29 07:20 | NUR ---
PATIENT RESTING IN BED, EYES CLOSED. WHITE BOARD UPDATED. CALL LIGHT WITHIN REACH. NO OTHER NEEDS AT THIS TIME
--- NOTE | 2020-07-29 07:48 | NUR ---
CALL LIGHT ANSWERED. PATIENT ASKS FOR TISSUES. TISSUES PROVIDED. PATIENT REPOSITIONED SUPINE IN BED. THREE PERSON ASSISTING.
--- NOTE | 2020-07-29 08:47 | NUR ---
PATIENT RESTING IN BED. RN IN ROOM. VITAL SIGNS AND I&O DONE. CALL LIGHT WITHIN REACH. NO OTHER NEEDS AT THIS TIME
--- NOTE | 2020-07-29 11:17 | NUR ---
Dilaudid 0.5mg IVP admin for reports of 7/10 abd pain.
--- NOTE | 2020-07-29 13:04 | NUR ---
PATIENT AMBULATED IN HALLWAY, 1PA FWW. PATIENT WENT TO END OF HALLWAY AND BACK AND TOLERATED IT WELL. PATIENT TO SHOWER CHAIR AND MOSTLY IND IN SHOWER. FORD CARE, SKIN CARE, SHAMPOO DONE. LINENS CHANGED. NEW GOWN AND SOCKS PROVIDED. PATIENT NOW TO CHAIR, 1PA FWW. WARM BLANKET GIVEN. CALL LIGHT IN REACH. NO FURTHER NEEDS AT THIS TIME.
--- NOTE | 2020-07-29 13:49 | NUR ---
PATIENT IN CHAIR RESTING WITH EYES CLOSED. VISITOR IN ROOM AT THIS TIME AND BROUGHT PATIENT A STOOL FOR HER FEET WHILE SITTING IN CHAIR. CALL LIGHT IN REACH. NO FURTHER NEEDS AT THIS TIME.
[2020-07-29] MEDS ORDERED: METFORMIN HCL500 M1 PO (14:29)
--- NOTE | 2020-07-29 14:42 | NUR ---
Patient sitting up in chair, respirations even and non labored. Patient has no distress at this time. NG to LIWS, patent with small light brown gastric drainage noted. Patient's respirations even and non labored. TPN continuing to infuse via central line. Patient recently had a visitor and seams to be in good spirits. Pain is better controlled at this time, per pt report. No needs. Personal supplies and call light within reach.
[2020-07-29] MEDS ORDERED: METFORMIN HCL1000 MG PO (15:08)
--- NOTE | 2020-07-29 17:04 | EKG ---
[facility] [address] [facility] [place] [address] Signed Poor data quality, interpretation may be adversely affected Normal sinus rhythm Normal ECG When compared with ECG of 28-JUL-2020 10:11, Nonspecific T wave abnormality has replaced inverted T waves in Inferior leads Confirmed by MAKENZIE PINEDA DO ([id number]) on 07/29/2020 5:03:53 PM Electronically Signed By: MAKENZIE PINEDA DO 07/29/20 1704 PATIENT NAME: VERO ROBLES ANN Electrocardiogram DATE OF : 47 PHYSICIAN: MAKENZIE PINEDA DO REPORT #: [id number] REPORT IS CONFIDENTIAL AND NOT TO BE RELEASED WITHOUT AUTHORIZATION
--- NOTE | 2020-07-29 17:39 | NUR ---
PATIENT IN BED RESTING. PATIENT ASKED FOR PAIN MEDS, RN NOTIFIED. CALL LIGHT IN REACH. NO FURTHER NEEDS AT THIS TIME.
--- NOTE | 2020-07-29 18:09 | NUR ---
Admin 0.5mg dilaudid IVP for reports of 7/10 abd pain.
--- NOTE | 2020-07-29 19:36 | NUR ---
SHIFT REPORT FROM NURSE BUNDY. PT LAYING SUPINE IN BED, EYES CLOSED BUT PT ANSWERING QUESTIONS. PT REQUESTS ICE PACK FOR NECK PAIN WHICH NURSE BUNDY BRINGS TO PT. MINIMAL NG OUTPUT AT THIS TIME. CALL LIGHT WITHIN REACH, PT WITHIN VIEW OF NURSES STATION.
--- NOTE | 2020-07-29 20:53 | NUR ---
CALL LIGHT ANSWERED. ASSISTED TO REPOSITION IN BED AND FIND CELL PHONE. PERSONAL SUPPLIES IN REACH. CALL LIGHT IN REACH.
--- NOTE | 2020-07-29 22:15 | NUR ---
V/S AND I&O TAKEN AND CHARTED. HADDAD/FORD CARE DONE. PICKED UP GARBAGE AND USED BLANKETS.
--- NOTE | 2020-07-29 22:39 | NUR ---
ASSESSMENT COMPLETE. HADDAD CARE PERFORMED. CBG 346 REQUIRING 9UNITS SS INSULIN. VERY GOOD URINE OUTPUT. MIDLINE INCISION CDI. NG TUBE OUTPUT REMAINS LOW. PT STATES THAT SHE IS FEELING GAS BLOATING BUT SO FAR NO FLATUS. BOWEL TONES ACTIVE. PT REPORTS PAIN 5/10 REQUESTS PRN PAIN MEDS. 0.5MG DILAUDID IV. PT DENIES FURTHER NEEDS AT THIS TIME. CALL LIGHT WITHIN REACH
--- NOTE | 2020-07-30 00:26 | NUR ---
CALL LIGHT ANSWERED. PT REQUESTS THROAT LOZENGE FOR IRRITATION D/T NG TUBE. LOZENGE PROVIDED. CALL LIGHT WITHIN REACH
--- NOTE | 2020-07-30 02:05 | NUR ---
IN ROOM FOR 0200 MEDS. PT REQUESTS PAIN MEDS. PRN 0.5MG DILAUDID IV ADMINISTERED. CBG 347 REQUIRING 9 UNITS SS INSULIN. PT REPORTS GAS CRAMPING IN ABDOMEN. NO FURTHER NEEDS AT THIS TIME. CALL LIGHT WITHIN REACH.
--- NOTE | 2020-07-30 06:40 | NUR ---
IN ROOM FOR MORNING MEDS, ASSESSMENT, VS. DR LEDESMA VISITS PT DURING THIS TIME. PT IS DROWSY, RESPONSIVE. NO FLATUS REPORTED, BOWEL TONES IN UPPER QUADRANTS HYPOACTIVE, ACTIVE IN LOWER QUADRANTS. VSS. LAB DRAWN. NO FURTHER NEEDS AT THIS TIME.
--- NOTE | 2020-07-30 08:35 | NUR ---
Admin dilaudid 1mg iVP for reports of 7/10 abdominal pain.
--- NOTE | 2020-07-30 09:24 | NUR ---
PATIENT IN BED RESTING WITH EYES CLOSED. WASHCLOTH GIVEN EARLIER. CALL LIGHT IN REACH. NO FURTHER NEEDS AT THIS TIME.
--- NOTE | 2020-07-30 09:53 | NUR ---
Spoke with Deena Melvin. [place] home, son and girlfriend live with her. She would like a walker with a seat on dc. I will request from Dr. Osorio. She states son and girlfriend will assist her.
--- NOTE | 2020-07-30 12:31 | PATH ---
[facility] [address] [facility], [place] [address] Signed SPECIMEN(S): A ILEUM SPECIMEN SOURCE: A. ILEUM CLINICAL HISTORY: Small bowel obstruction. Ileum (stitch marcus distal portion), abdominal pain. 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 - Surgical margins appear viable. BRP:[id number] MICROSCOPIC EXAMINATION: Histologic sections of all submitted blocks are examined by light microscopy. These findings, together with the gross examination, support the pathologic diagnosis. GROSS DESCRIPTION: The specimen, labeled "RS," and designated on the requisition "ileum, stitch marcus distal portion," is received in formalin and consists of a previously opened segment of small bowel (6.4 cm in length x 2.7 cm in diameter) with stapled proximal and distal margins and attached mesenteric fat (extending up to 3.7 cm). The proximal bowel margin is inked blue and the distal bowel margin is inked black. The serosa is pink-hagen and smooth. The mucosa is brown-hagen to hemorrhagic with areas of attenuation and thinned bowel (0.2 cm in thickness). No masses or lesions are identified. Lead Web Developer sections are submitted as follows: Cassette Summary: (A1) Bowel margins, en face (A2) Irregular bowel wall (A3) Grossly unremarkable bowel wall AC (under the direct supervision of a pathologist) The Gross Description was prepared using a voice recognition system. The report was reviewed for accuracy; however, sound-alike word errors, addition and/or deletions may occur. If there is any question about this report, please contact Client Services. PATIENT NAME: VERO ROBLES PATHOLOGY DATE OF : 47 REPORT #: [id number] PHYSICIAN: EDIS PATHOLOGY PCP: [facility] REPORT IS CONFIDENTIAL AND NOT TO BE RELEASED WITHOUT AUTHORIZATION [facility] [address] [place], [place] [address] Signed PERFORMING LABORATORY: The technical component was performed by [place] [address] (Retail Sales Clerk: Melody Suggs MD; CLIA# [id number]). Professional interpretation [facility] by [facility], [address] [address] (CLIA# [id number]). Diagnostician: Nahun Nolasco MD Pathologist Electronically Signed 07/30/2020 Copies: ~ PATIENT NAME: VERO ROBLES PATHOLOGY DATE OF : 47 REPORT #: [id number] PHYSICIAN: EDIS PATHOLOGY PCP: [facility] REPORT IS CONFIDENTIAL AND NOT TO BE RELEASED WITHOUT AUTHORIZATION
--- NOTE | 2020-07-30 12:41 | NUR ---
Patient resting in bed, a&ox4. VSS, patient remains on room air, respirations even and non labored. NG to LIWS, light brown gastric drainage noted. Patient reports she is feeling better today. Pain has been well controlled with intermittent dilaudid. TPN infusing per provider order. Central line dressing is CDI. Good blood return noted this morning with hep flush completed to non infusing ports. Patient denies flatus. Bowel tones hypoactive x4 quadrants. No nausea reported. Patient has ambulating with SBA using FWW.
--- NOTE | 2020-07-30 16:12 | NUR ---
MED REC COMPLETE
--- NOTE | 2020-07-30 17:14 | NUR ---
Dilaudid 1mg IVP admin for reports of 7/10 abd pain.
--- NOTE | 2020-07-30 17:20 | NUR ---
PATIENT IN BED RESTING WITH EYES CLOSED. RN IN ROOM TO TAKE BLOOD PRESSURE. CALL LIGHT IN REACH. NO FURTHER NEEDS AT THIS TIME.
--- NOTE | 2020-07-30 18:04 | NUR ---
Zofran 8mg ivp admin for reports of nausea.
--- NOTE | 2020-07-30 19:16 | NUR ---
IN ROOM FOR REPORT, PT DENIES NEEDS AT THIS TIME. CALL LIGHT IS CLOSE AND TPN IS INFUSING.
--- NOTE | 2020-07-30 20:17 | NUR ---
VS and I&Os complete. BS check complete at this time with a reading of 311. RN notified, pt denies any further requests.
--- NOTE | 2020-07-30 20:53 | NUR ---
MEDICATIONS WERE ADMINISTERED BY BARBARA CORNELIUS.
--- NOTE | 2020-07-30 22:09 | NUR ---
VISITED PT AT RN'S SUGGESTION DURING ROUNDS PT WAS SOMEWHAT SLEEPY AND MENTIONED IT WAS UNCOMFORTABLE TO SPEAK I SIMPLY OFFERED PRAYER WHICH SHE READILY ACCEPTED. SHE EXPRESSED APPRECIATION FOR THE VISIT AND PRAYER.
--- NOTE | 2020-07-30 22:31 | NUR ---
IN ROOM TO ASSESS PT AND ADMINISTER THE REST OF THE PT'S MEDICATIONS. SHE STATES PAIN IS 5/10 AND MORE IN HER HEAD THAN ABD. ADMINISTERED 1MG IV DILAUDID SLOW PUSH DILUTED. BT ARE ACTIVE RLQ IS A LITTLE LESS ACTIVE BUT NOT HYPOACTIVE. MIDLINE INCISION WITH JORI ARE CDI WITH LITTLE REDNESS. NG TUBE IS DRAINING BROWN TO LIWC. SHE HAS VERY LITTLE NAUSEA AND IS DROWSY AT THIS TIME. TPN IS INFUSING THROUGH CL. PT DENIES FURTHER NEEDS CALL LIGHT IS CLOSE.
--- NOTE | 2020-07-31 00:33 | NUR ---
PT CALLED D/T HEART BURN/NAUSEA. ADMINISTERED IV ZOFRAN AND CHLORESEPTIC SPRAY. ALSO IRRIGATED NG TUBE. PT DENIES FURTHER NEEDS AT THIS TIME AND STATES IT FEELS BETTER WITH HEAD OF BED ELEVATED. CALL LIGHT IS CLOSE.
--- NOTE | 2020-07-31 01:51 | NUR ---
PT CALLED FOR HELP ADJUSTING PILLOW. QUAN MATIAS RN ASSISTED HER AND SHE DENIES FURTHER NEEDS.
--- NOTE | 2020-07-31 02:45 | NUR ---
ADMINISTERED MEDICATIONS AND CHECKED BS, SHE WAS 299. VS TAKEN AND ENTERED. ADMINISTERED 1MG IV DILAUDID SLOW PUSH FOR 5/10 PAIN. MIDLINE INCISION IS CDI WITH JORI INTACT. PT DENIES NEEDS AND CALL LIGHT IS CLOSE.
--- NOTE | 2020-07-31 04:42 | NUR ---
PT IS RESTING WITH EYES CLOSED, TPN IS INFUSING FINE. CALL LIGHT IS CLOSE.
--- NOTE | 2020-07-31 06:52 | NUR ---
IN ROOM TO ADMINISTER MORNING MEDS AND DO LAB DRAW FROM CL. PT DENIES FURTHER NEEDS. CALL LIGHT IS CLOSE.
--- NOTE | 2020-07-31 07:37 | NUR ---
SHIFT REPORT FROM NURSE HANLEY. PT SITTING IN BED WITH HOB ELEVATED, EYES CLOSED. PT DENIES NEEDS AT THIS TIME. CALL LIGHT WITHIN REACH
--- NOTE | 2020-07-31 08:30 | NUR ---
PT C/O PAIN 6/10 IN ABDOMEN/FACE/NECK. 1MG IV DILAUDID PROVIDED. SS INSULIN FOR CBG 308 ADMINISTERED AT THIS TIME WELL. PT DENIES FURTHER NEEDS AT THIS TIME.
--- NOTE | 2020-07-31 10:00 | NUR ---
BUSINESS MANAGEMENT ASSOCIATE REPORTS THAT PT C/O OF CHEST PAIN. CHARGE NURSE AND THIS NURSE IN ROOM. UPON FURTHER QUESTIONING, PT REPORTS ESOPHOGEAL PAIN. NG SUCTION TUBING REPOSITIONED ALONG WITH CLEARING OF NG TUBE CONTENTS. PT REPORTS IMMEDIATE RELIEF FOLLOWING THIS INTERVENTION. NO FURTHER NEEDS AT THIS TIME.
--- NOTE | 2020-07-31 10:35 | NUR ---
IN ROOM FOR MORNING MEDS, ASSESSMENT. PT IS MORE TALKATIVE TODAY HOWEVER IS BOTHERED BY NG TUBE AND BLOATED FEELING IN ABDOMEN. PT REPORTS NO FLATUS YET. WHITE LUMEN OF CENTRAL LINE DID NOT GIVE GOOD BLOOD RETURN HOWEVER AFTER FLUSHING BY CHARGE NURSE, LINE DID GIVE GOOD BLOOD RETURN. BOO DC'D PER DR TOBIN ORDER. CBG 308 AT 0828 REQUIRING 7U SS INSULIN. MIDLINE INCISION CDI. SOME UNCHANGED REDNESS NEAR UMBILICUS. VSS. PT WOULD LIKE TO REST SOME NOW. NO FURTHER NEEDS AT THIS TIME.
--- NOTE | 2020-07-31 10:52 | NUR ---
Took pt. vitals, emptied elias, MATEO Muñiz and MATEO Barnard in room with pt. no other needs at this time.
--- NOTE | 2020-07-31 11:04 | NUR ---
Attempted to visit with PT. PT expressed significant discomfort and was pulling at chest. PT stated she was not good company at the moment. I offered to inform nurse, to which PT agreed. MATEO Muñiz was at desk, and I let her know of PT discomfort. She went into PT room.
--- NOTE | 2020-07-31 12:09 | NUR ---
TPN DAY 4 TODAY. PATIENT REMAINS NPO, AWAITING GI FUNCTION. DEXTROSE DECREASED TO 15%. AVERAGE CALORIES PROVIDED BY TPN IN 24 HRS IS NOW 1,848 CALORIES AND 100 GRAMS PROTEIN. THIS PROVIDES 18.5 SHEYLA/KG CBW OR 25 SHEYLA/KG ADJ BW. ADJUSTED BW IS 160 LBS (72.7 KG). BLOOD SUGARS HAVE BEEN IN THE 300'S EVEN WITH LANTUS AND HUMULIN R. TPN STILL MEETING PATIENT'S CALORIE AND PROTEIN NEEDS. INSULIN ORDER IS NOW 40 UNITS LANTUS AT NIGHT AND 10 UNITS HUMULIN Q 6 HOURS. CONTINUE TO WAIT FOR GI FUNCTION TO RETURN TO BE ABLE TO INITIATE ORAL DIET AND WEAN TPN.
--- NOTE | 2020-07-31 13:22 | NUR ---
PT BACK IN ROOM. UP IN CHAIR. NG TUBE REINFORCED OVER NOSE. CALL LIGHT WITHIN REACH. PT USING HER TABLET. NO FURTHER NEEDS AT THIS TIME.
--- NOTE | 2020-07-31 14:28 | NUR ---
Spoke with Deena. She is up in a chair, helped to reposition. Updated I left a note for Dr. Ellis asking for an order for a walker. She asks I call her son to check if he can provide care. I attempted to call cell phone, but 0 answer.
--- NOTE | 2020-07-31 14:37 | NUR ---
in room for 1400 meds. pt still up in chair. cbg 332 requiring 9units ss insulin. no further needs at this time. call light within reach
--- NOTE | 2020-07-31 15:45 | NUR ---
PT UP TO TOILET TO VOID. URINE OUPUT QS. PT RETURNED TO BED; NEW TPN AND LIPIDS HUNG. FRESH ICE CHIPS, COLD WASHCLOTH PROVIDED PER REQUEST OF PT. NO FURTHER NEEDS AT THIS TIME. CALL LIGHT WITHIN REACH
--- NOTE | 2020-07-31 16:03 | NUR ---
Pt. went for a walk around med/surg floor. she did the loop back to her room. pt. decided to sit in chair when she returned. no other needs at this time.
--- NOTE | 2020-07-31 18:52 | NUR ---
PT HAD A DECENT DAY. HADDAD WAS D/C'D AT 1040 AND PT HAS HAD QS URINE AND IS MOSTLY CONTINENT. BOWEL TONES ARE HYPOACTIVE THROUGHOUT. PT TOLERATING TPN AND LIPIDS WELL. PT WAS MORE TALKATIVE AND ALERT TODAY. PT AMBULATED IN HALLWAY MIDDAY AND WAS UP IN THE CHAIR A COUPLE HOURS. PT CALLS APPROPRIATELY.
--- NOTE | 2020-07-31 18:58 | NUR ---
pt. nurse was in room and took vitals. no other needs at this time
--- NOTE | 2020-07-31 19:30 | NUR ---
BEDSIDE REPORT RECEIVED FROM MATEO ALVAREZ. pt ON RA, SITTING UP IN BED. NGT TO LOW INT SUCTION, GREEN/BROWN DRAINAGE IN TUBE. pt RATES PAIN 3/10 IN HEAD, NECK. ASSISTED TO REPOSTION WITH PILLOWS, WARM BLANKET PROVIDED.
--- NOTE | 2020-07-31 19:45 | NUR ---
PT'S SON KENNEDY HAD CALLED FOR AN UPDATE ON PT. THIS NURSE CALLED KENNEDY AND GAVE HIM AN UPDATE ON PT.
--- NOTE | 2020-07-31 20:23 | NUR ---
pt SITTING UP IN BED. CBG 336, SS AND SCHEDULED INSULIN ADMINISTERED. CENTRAL LINE LUMENS FLUSHED, GOOD BLOOD RETURN X 3, TWO LUMENS HEPARIN LOCKED WNL. ASSESSMENT COMPLETE. BOWEL TONES HYPOACTIVE, ABD SOFT, pt STATES "FEEL BLOATED AND I'M REALLY HUNGRY. I'M READY TO EAT SOME FOOD". ICE CHIPS PROVIDED. NGT TO LOW INT SUCTION. COOL WASH CLOTH PROVIDED. CALL LIGHT IN REACH.
--- NOTE | 2020-07-31 20:55 | NUR ---
ASSISTED PT TO THE RESTROOM, SHE WILL PULL CALL STRING WHEN COMPLETE.
--- NOTE | 2020-07-31 21:08 | NUR ---
JORDIN ASSISTED PT BACK TO BED FROM RESTROOM. PLACED NG TUBE BACK TO LIWS NOW THAT PT IS BACK IN BED. SHE REQUESTED CHLORASEPTIC SPRAY FOR THROAT, ADMINISTERED. PT DENIES FURTHER NEEDS. CALL LIGHT IS CLOSE.
--- NOTE | 2020-07-31 22:30 | NUR ---
pt SLEEPING, AWAKENS TO VOICE AND BACK TO SLEEP. SCHEDULED MEDICATION ADMINISTERED. CALL LIGHT IN REACH. NGT TO LOW INT SUCTION. TPN INFUSING.
--- NOTE | 2020-07-31 23:18 | NUR ---
CALL LIGHT ANSWERED. PRN PAIN MEDICATION ADMINISTERED REQUESTED FOR 5/10 ABDOMINAL PAIN. NGT WITH LIGHT GREEN OUTPUT IN TUBE. pt ASSISTED TO REPOSITION IN BED, BEDDING STRAIGHTENED. CALL LIGHT IN REACH.
--- NOTE | 2020-08-01 01:03 | NUR ---
CALL LIGHT ANSWERED. pt REQUESTING ICE CHIPS AND WARM BLANKET. pt BRACING ABDOMEN WITH BLANKET WITH COUGHING. DENIES PAIN AT REST, STATES "IT JUST HURTS WHEN I COUGH". CALL LIGHT IN REACH, NO ADDITIONAL REQUESTS.
--- NOTE | 2020-08-01 02:30 | NUR ---
IN pt ROOM FOR SCHEDULED MEDICATION ADMINISTRATION, CBG 314, SS AND SCHEDULED INSULIN ADMINISTERED. SBA TO RESTROOM FOR VOID, INCONTINENCE NOTED IN ATTENDS WITH AMBULATION. pt GAIT STEADY WITH FWW, ABLE TO GET SELF IN AND OUT OF BED INDEPENDENTLY. NGT TO LOW INT SUCTION. RATES PAIN 4/10, PRN MEDICATION ADMINISTERED. BOWEL TONES ACTIVE AT THIS TIME, pt CONTINUES TO DENY FLATUS, ABD SOFT, INCISION WELL APPROXIMATED WITH JORI, NO DRAINAGE NOTED. NGT FONTANEZ REPLACED ON NOSE. CALL LIGHT IN REACH.
--- NOTE | 2020-08-01 03:30 | NUR ---
LIPIDS COMPLETE. pt RESTING IN BED WITH EYES CLOSED, HOB ELEVATED. BREATHING UNLABORED. LIGHTS OFF IN ROOM.
--- NOTE | 2020-08-01 05:55 | NUR ---
pt NPO, NGT TO LOW INT SUCTION, 100 MLS GREEN DRAINAGE THIS SHIFT. pt C/O PAIN IN ABDOMEN, WELL CONTROLLED WITH PRN IV PAIN MEDICATION. ABLE TO REST WELL THIS SHIFT. CENTRAL LINE WITH GOOD BLOOD RETURN X 3 LUMENS. TPN INFUSING THROUGHOUT SHIFT. SBA WITH FWW, ABLE TO TRANSFER SELF IN AND OUT OF BED. USES CALL LIGHT APPROPRIATELY.
--- NOTE | 2020-08-01 06:00 | NUR ---
pt SLEEPING, AWAKENS TO VOICE. VSS. SBA TO RESTROOM WITH FWW FOR VOID AND BACK TO BED, NO INCONTINENCE NOTED IN ATTENDS. NGT TO LOW INT SUCTION. NO C/O PAIN. TPN INFUSING CENTRAL LINE. LABS DRAWN AND SCHEDULED MEDICATIONS ADMINISTERED. pt HAS NO REQUESTS AT THIS TIME. CALL LIGHT IN REACH.
--- NOTE | 2020-08-01 06:42 | NUR ---
RENNY DENISE'Tristan WNL. pt TOLERATED WELL. PREMEDICATED WITH CHLORASEPTIC SPRAY. pt PROVIDED WITH ICE CHIPS. NO ADDITIONAL REQUESTS, CALL LIGHT IN REACH.
--- NOTE | 2020-08-01 07:18 | NUR ---
REPORT RECEIVED FROM MATEO GLASS. PT RESTING IN BED. REPORTS 1.5/10 PAIN IN ABDOMEN THAT IS "PRETTY GOOD." PT SMILING AND REPORTS SHE FEELS "BETTER TODAY." ABDOMINAL INCISION C/D/I WITH EDGES WELL APPROXIMATED WITH MILD ERYTHEMA NOTED AT EDGES OF WOUND NEAR UMBILICUS. PT STATES SHE HAS NO REQUESTS OR COMPLAINTS AT THIS TIME. CALL PERLA SPARKS.
--- NOTE | 2020-08-01 09:14 | NUR ---
MORNING ASSESSMENT AND MEDICATIONS DUE. PT RESTING IN BED, FACE TIGHT, PT STROKING STOMACH. PT REPORTS 5/10 ACHING PAIN IN ABDOMEN AND REQUESTS PAIN MEDICATIONS. PT ALSO REPORTS MILD NAUSEA. SEE MAR FOR MEDICATIONS GIVEN. MEDICATION GIVEN THROUGH WHITE LUMEN OF CENTRAL LINE. LUMEN ASSESSED, BRISK BLOOD REUTRN NOTED, MEDICATIONS GIVEN, LINE FLUSHED AND HEPARIN LOCKED PER PROTOCOL. BLUE LUMEN ALSO SHOWS BLOOD REUTRN, FLUSHED AND HEPARIN LOCKED. BROWN LUMEN ASSESED, BLOOD RETURN NOTED, LUMEN INFUSING TPN. ASSESSMENT DONE. ABDOMEN SOFT. BOWEL TONES HEARD. PT ORIENTED TO ALL BUT BELIEVES SHE IS "ON THE THRID FLOOR." LUNG SOUNDS CLEAR. PT ENCOURAGED TO GET UP TO CHAIR BUT DECLINES AT THIS TIME. SCDS PLACED BACK ON PT. MIDLINE INCISION C/D/I WITH EDGES WELL APROXIMATED. MILD ERYTHEMA NOTED AROUND WOUND EDGES NEAR UMBILICUS. PT STATES "MY FAMILY IS BRINGING IN CANDY BUT I'LL HAVE TO EAT A LOT IF THAT IS MY ONLY NUTRITION." EDUCATION DONE WITH PT REGARDING TPN NUTRITION SHE IS RECEIVING. PT VERBALIZES UNDERSTANDING. PT ENCOURAGED ONLY TO HAVE MINIMAL SUGAR FREE CANDY WHEN SHE FEELS SHE NEEDS SOMETHING IN HER MOUTH. PT ALSO ENCOURAGED TO HAVE MINIMAL ICE CHIPS. PT VERBALIZES UNDERSTANDING. PT STATES SHE DOES NOT WANT VISITORS TODAY AND "JUST WANT TO REST." MEDICAITONS GIVEN (SEE MAR). PT RESTING IN BED, NOW REPORTS PAIN IS AT 1/10. PT REPOSITIONED IN BED. NO ADDIITONAL REQUESTS OR COMPLAINTS AT THIS TIME. CALL LIGHT WITHIN REACH.
--- NOTE | 2020-08-01 10:20 | NUR ---
THIS RN TO ROOM TO CHECK ON PT. MEDICAITON DUE. PT REPORTS 1/10 ACHING PAIN IN ABDOMEN. PT DENIES NAUSEA. VITALS SIGNS STABLE, TAKEN BY REENA KAMINSKI. METOPROL DUE. HEPARIN REMOVED FROM WHITE LUMEN OF CENTRAL LINE. BRISK BLOOD RETURN GIVEN. LINE FLUSHED, METOPROLOL GIVEN. LINE FLUSH, WHITE LINE REMAINS SALINE LOCKED AT THIS TIME. PT GETTING UP WITH BUSINESS OFFICE TECHNOLOGY INSTRUCTOR TO RESTROOM. PT DENIES ADDITIONAL REQUESTS OR COMPLAINTS AT THIS TIME. CALL PERLA SPARKS.
--- NOTE | 2020-08-01 11:21 | NUR ---
THIS RN TO ROOM TO CHECK ON PT. PT RESTING WITH EYES CLOSED. RESPIRATIONS EVEN AND UNLABORED. BED RAILS UP. CALL LIGHT WITHIN REACH. PT ALLOWED TO REST UNDISTURBED.
--- NOTE | 2020-08-01 13:06 | NUR ---
THIS RN TO ROOM TO CHECK ON PT. PT RESTING WITH EYES CLOSED. RESPIRATIONS EVEN AND UNLABORED. HEAD OF BED ELEVATED TO [address] PT ALLOWED TO REST. CALL LIGHT WITHIN REACH. BED RAILS UP.
--- NOTE | 2020-08-01 13:30 | NUR ---
Spoke with Deena, granddaughter is in the room. Updated I tried to call her son, but could not reach yesterday. She calls son, Shaji. Updated Deena wanted me to asked if he would be able to care for her on dc. Shaji is very pleasant and states he is working from home and girlfriend is not working. He will be glad to provide care for his mother. He did this when she had heart surgery. He also states he was tested for covid and is quarantined until Aug 10. He does not feel he had an exposure and plans on taking mom home she is discharged. He and girlfriend are asymptomatic. Let him know I am not sure when the is planning on dc. I have an rx for a walker, but do not have a note entered into the chart for the need.
--- NOTE | 2020-08-01 14:03 | NUR ---
AFTERNOON ASSESSMENT AND MEDICATION DUE. PT RESTING WITH EYES CLOSED, RESPIRATIONS EVEN AND UNLABORED. PT AWAKENS TO VOICE AND LIGHT TOUCH. PT REPORTS 6/10 ACHING PAIN IN ABDOMEN AND REQUESTS PAIN MEDICATION. BLOOD SUGAR TAKEN. VITAL SIGNS STABLE. MEDICAITON GIVEN (SEE MAR). ALCOHOL SWAB PROVIDED FOR NASUEA. PT STATES "OH THAT HELPS A LOT." PT ENCORUAGED TO TAKE IT EASY WITH ICE CHIPS AND HARD CANDIES. PT UP WITH STAND BY ASSIST AND FRONT WHEEL WALKER TO USE RESTROOM. PT VOIDS 200ML CONCENTRATED LIGHT PINK URINE. PT DENIES PAIN WITH URINATION PT ENCOURAGED TO GET UP TO CHAIR, PT DECLINES. STAND BY ASSIST BACK TO BED. ASSESSMENT DONE. +1 PITTINNG EDEMA NOTED TO BILATERAL LOWER EXTREMITIES, PT SATES THIS IS BASELINE. MIDLINE INCISION EDGES WELL APROXIMATED, NO DRAINAGE NOTED. MILD ERYTHEMA AROUND EDGES OF INCISION NEAR UMBILICUS. SCD'S IN PLACE. PT RESTING WITH HEAD OF BED ELEVATED TO 30 DEGREES. NO ADDITIONAL REQUESTS OR COMPLAINTS. CALL LIGHT WITHIN REACH. BED RAILS UP.
--- NOTE | 2020-08-01 14:25 | NUR ---
PUMP ALARMING, TPN INFUSION COMPLETE. BROWN LUMEN OF CENTRAL LINE ASSESSED, BRISK BLOOD RETURN NOTED. NEW TPN BAG WITH NEW TUBING HUNG. PT CONTINUES RESTING IN BED. REPORTS PAIN IS NOW 0/10. BED RAILS UP. CALL LIGHT WIHTIN REACH.
--- NOTE | 2020-08-01 16:01 | NUR ---
THIS RN TO ROOM TO CHECK ON PT. PT VISITING WITH FAMILY. PT RPEORTS PAIN AT 0/10 IN ABDOMEN AND STATES SHE HAS MILD NAUSEA THAT IS "jUST FINE." PT DENIES NEED FOR MEDICATION AT THIS TIME. FRESH ICE CHIPS PROVIDED. PT REPORTS FAMILY DELIVERED SUGAR FREE HARD CANDIES BUT "I DON'T LIKE THEM." PT DENIES ADDITIONAL REQUESTS OR COMPLAINTS. CALL LIGTH WITHIN REACH. BED RAILSUP.
--- NOTE | 2020-08-01 17:30 | NUR ---
THIS RN TO ROOM TO CHECK ON PT. PT VISITING WITH MD. PT REQUESTS "MORE TO EAT, LIKE JELLO." PT ALSO REPORTS NAUSEA AND 5/10 CRAMPING PAIN THAT "COMES AND GOES." EDUCATION DONE WITH PT REGARDING CURRENT DIET RESTRICTIONS. PT VERBALIZES UNDERSTANDING. VITAL SIGNS STABLE. MEDICATION GIVEN (SEE MAR). PT RETURNS TO RESTING WITH EYES CLOSED. PT PLAYING PEACFUL MUSIC THROUGH IPAD FOR HERSELF. NO ADDIITONAL REQUESTS OR COMPLAINTS. CALL LIGHT KALLIEIN REACH BED RAILS UP.
--- NOTE | 2020-08-01 17:57 | NUR ---
POST OP DAY 5 AFTER ABDOMINAL LAPAROTOMY. PT RESTING IN BED MOST OF THIS SHIFT, DECLINES TIME UP TO CHAIR BUT AMBULATES TO BATHROOM WITH 1 PERSON ASSIST AND FRONT WHEEL WALKER. PT REMAINS NPO WITH TPN INFUSING THROUGH CENTRAL LINE. PT REQUESTS FOOD AND FLUIDS, EDUCATION DONE. PT ALSO REPORTS NAUSEA THIS SHIFT, PRN NAUSEA MEDICATIONS GIVEN X2. PRN PAIN MEDICATION GIVEN X3 THIS SHIFT FOR 4-6/10 CRAMPING AND ACHING ABDOMINAL PAIN. NG TUBE DC'D THIS MORNING. SCHEDULED BLOOD SUGAR CHECKS, SCHEDULED INSULIN, AND SLIDING SCALE INSULIN GIVEN. MID LINE INCISION REMAINS INTACT WITH EDGES WELL APROXIMATED, NO DRAINAGE NOTED, AND MILD ERYTHEMA ON EDGES OF WOUND AROUND UMBILICUS. PT VOIDING QUANTITY SUFFICIENT. PT USES CALL LIGHT APPROPRIATLY.
--- NOTE | 2020-08-01 18:19 | NUR ---
THIS RN TO ROOM TO CHECK ON PT. PT DENIES PAIN AND NAUSEA STATING PAIN IS AT 0/10. 1 PERSON ASSIST WITH FRONT WHEEL WALKER UP TO RESTROOM. PT VOIDS LIGHT PINK CONCENTRATED URINE. PT PERFORMES SELF FORD AND ORAL CARE. 1 PERSON ASSIST WITH FRONT WHEEL WALKER BACK TO BED. PT DECLINES TIME UP TO CHAIR. NO ADDITONAL REQUESTS OR COMPLAINTS. WARM BLANKETS PROVIDED. CALL LIGHT WITHIN REACH. BED RAILS UP.
--- NOTE | 2020-08-01 21:06 | NUR ---
pt awake, calm, on roomn air, coop with assessment, lungs clear, R CL 3 port iv site intact. NPO, tolerating well, ice chips at bedside, used chloraseptic spray, scds in place, voiding small amounts qs dark yellow urine. midline abd incision w parveen, open to air. more pink at umbilical area, dry, edges well approx, danny passing gas, scds in place, copyright expert, pleasant. no c/o pain.
--- NOTE | 2020-08-01 23:10 | NUR ---
UP TO BR, VOIDED, BACK TO BED, SITTING AT EDGE OF BED, STATED SHE PASSED GAS, COOP, NO C/O PAIN.
--- NOTE | 2020-08-01 23:10 | NUR ---
IN RM TO SBA PT TO THE TOILET, PT REPLACED ATTENDS, ASST PT WITH LOTION APPLICATION, RN PULLED MT TO ASST ANOTHER PT, PT IS GETTING BACK IN BED AT THIS TIME
--- NOTE | 2020-08-01 23:59 | NUR ---
c/o abd pain 12/09. medicated with dilaudid 1mg iv at her requets. awake, alert and oriented
--- NOTE | 2020-08-02 00:35 | NUR ---
RESTING, ON ROOM AIR, CALM, NO RESP DISTRESS, CALL LIGHT AT BEDSIDE, NPO, MOUTH CARE DONE BY PT.
--- NOTE | 2020-08-02 01:42 | NUR ---
IV PUMP BATTERY BEEPING, PLUGED IV IN. PT IS RESTING WITH EYES CLOSED, RR IS EVEN AND NONLABORED. CALL LIGHT IS CLOSE.
--- NOTE | 2020-08-02 02:45 | NUR ---
IN TO GET PT VITALS, RN WITH THE GLUC CHECK, NO FURTHER NEEDS AT THIS TIME
--- NOTE | 2020-08-02 02:51 | NUR ---
AWAKES EASILY, NO C/O PAIN. ROOM AIR, MIDLINE INCISION W/O CHANGES, USES CALL LIGHT, R CL IVF INFUSING.
--- NOTE | 2020-08-02 04:19 | NUR ---
up to br, voided, c/o abd pain 01/09, midline abdominal incision with parveen in place, no changes, medicated with Dilaudid 1mg IV. pt taken for a walk using 1pa, fww
--- NOTE | 2020-08-02 05:02 | NUR ---
Pt has slept off and on, on room air, midline abd incision with parveen inplace, dry, edges well approx, pink at umbilical area, RACQUEL, passed gas earlier, no bm. R CL patent, infusing TPN. Was medicated x2 with DIlaudid 1mg IV per abd pain with good pain relief. still NPO x ice chips, does own mouth care. UP to ambulate with 1PA/FWW, went down, around and up to nursing station, tolerated well, back to room, in bed, scds in place. voiding QS when up to BR. uses call light
--- NOTE | 2020-08-02 06:00 | NUR ---
lab draw obtained from CL by RN, and sent to lab
--- NOTE | 2020-08-02 06:32 | NUR ---
PT CALLED FOR HELP TO THE RESTROOM. SBA WITH FWW TO THE RESTROOM, SHE WILL PULL CALL STRING WHEN SHE IS DONE.
--- NOTE | 2020-08-02 06:46 | NUR ---
WAS IN PT RM TO GET PT BACK FROM THE TOILET, ASST PT TO APPLY FOAM LOTION, NO FURTHER NEEDS AT THIS TIME, PT IS GETTING SETTED IN BED AT THIS TIME
--- NOTE | 2020-08-02 09:31 | NUR ---
SPOKE WITH DR PINEDA ABOUT BLOOD SUGAR-120, WILL HOLD REGULAR INSULIN THIS AM.
--- NOTE | 2020-08-02 15:00 | NUR ---
PT AMBULATED TO SINK TO WASH FACE AND RINSE MOUTH, COMB HAIR, BACK TO BED AND WATCHING BALL GAME, DILAUDID GIVEN FOR ACHING, DENIES NAUSEA, SIPPING TEA.CALL LIGHT IN EASY REACH.
--- NOTE | 2020-08-02 20:34 | NUR ---
SOLE CEMENTER ROUNDING NOTE. PT SITTING UP IN CHAIR. REQUESTS ASSISTANCE WITH APPLYING OTC MUSCLE RUB FOAM. PT STATES THAT IF SHE DOES NOT USE THE RUB, SHE HAS MUSCLE CRAMPS. PT DENIES FURTHER NEEDS AT THIS TIME. CALL LIGHT IN REACH. WHITE BOARD UPDATED.
--- NOTE | 2020-08-02 22:07 | NUR ---
Pt up from chair to br sba/fww, voided, back to bed. tolerated well. coop with assessment, On room air, RCL patent, infusing lipids and TPN. midline abd insicion with parveen, open to ar, pinkish area around umbilical area incision site. edema at ankles, scds in place. will medicated per abd pain and r arm
--- NOTE | 2020-08-02 22:23 | NUR ---
medicated with dilaudid 1mg iv c/o abd pain and r arm area.
--- NOTE | 2020-08-02 23:02 | NUR ---
WAS IN PT RM TO ASST PT WITH CALL LIGHT/BEDRAIL BUTTONS, CUP OF ICE PROVIDED, COOL WASHCLOTH FOR HEAD, NO FURTHER NEEDS AT THIS TIME
--- NOTE | 2020-08-02 23:10 | NUR ---
Eyes closed, onroom air, no further c/o pain TPN and lipids infusing. scds in place. on clear liquids
--- NOTE | 2020-08-02 23:25 | NUR ---
IN WITH RN TO TURN PT ON TO RIGHT SIDE, BOOSTED IN BED ALSO, PRISCILA YEE NEEDS AT THIS TIME
--- NOTE | 2020-08-03 02:33 | NUR ---
CBG 297, RECEIVED 7 UNITS REGULAR SS INSULIN, UP TO BR, VOIDED, BACK TO BED, TOLERATD WELL, ABD INCISION W/O PROBLEMS, STATED PASSED GAS EARLIER
--- NOTE | 2020-08-03 03:55 | NUR ---
rESTING, ON ROOM AIR, AWAKES EASILY. LIPIDS COMPLETED,. CALL LIGHT AT BEDSIDE, NO FURTHER C/O PAIN OR N/V
--- NOTE | 2020-08-03 05:30 | NUR ---
PT HAS SLEPT, UP IN CHAIR AT BEGINING OF SHIFT, TOLERATED WELL, GETS UP TO BR WITH ASSIST/FWW. VOIDING QS. ON ROOM AIR, TPN AND LIPIDS INFUSING VIA R SIDED CENTRAL LINE. MIDLINE ABD INCISION WITH JORI IN PLACE, ABD DISTENDED, PINK COLORED AREA AROUND UMBILICIAL INCISION AREA. STATED PASSING GAS, TOLERATING FLUIDS WELL, WAS MEDICATED PER PAIN WITH GOOD PAIN CONTROL. CBG WERE AT 337 AND 297 W 9 AND 7 UNITS SS REGULAR INSULIN COVERAGE AND SCDS IN PLACE
--- NOTE | 2020-08-03 06:25 | NUR ---
pt up to br with assist, voided, back to bed, tolerated well, no c/o pain. ivf infusing, on room air, fresh water at bedside
--- NOTE | 2020-08-03 09:10 | NUR ---
UP TO SINK FOR AM CARES, MED SOFT BM THIS AM, STATES SHE IS HUNGRY!, DR LEDESMA IN TO SEE PT, NOTED ORDERS TO BEGIN REDUCING TPN, FAXED TO PHARMACY. WILL REMOVE EVERY OTHER STAPLE WHEN PT LAYS DOWN. ADVANCING DIET.
--- NOTE | 2020-08-03 10:25 | NUR ---
RATE ON TPN DECREASED, PT SITTING UP IN RECLINER, ATE 1/2 BOWL CREAM OF WHEAT, NO NAUSEA BUT IS HAVING INCREASED ABD CRAMPING, GOOD BOWEL SOUNDS, NORCO GIVEN FOR DISCOMFORT.
--- NOTE | 2020-08-03 12:57 | NUR ---
PATIENT GOT A BED BATH. NEW GOWN AND SOCKS. PUT LOTION ON HER FEET. SHAMPOODED HER HAIR.
--- NOTE | 2020-08-03 13:30 | NUR ---
TOLERATED DIET WELL, ATE 25% OF SOFT DIET FOR LUNCH, TAKING PO FLUIDS WELL, NO NAUSEA, BACK TO BED FOR A NAP. WATCHING FOOTBALL . DENIES ANY NEEDS.
--- NOTE | 2020-08-03 16:58 | NUR ---
TPN DC'D, BLOOD SUGAR 209. DINNER ORDERED, PT IN GOOD SPIRITS.
--- NOTE | 2020-08-03 20:21 | NUR ---
PT UTILIZES CALL LIGHT, HOLDING HER ABD. REPORTS PAIN TO ABD, REQUESTS PRN PAIN MEDICATION. SEE EMAR. RATES PAIN 11/09. PT UP TO BATHROOM, BRUSHED TEETH, AND BACK TO BED WITH SBA AND FWW. PT TOLERATED WELL. PT REQUESTS MUSCLE FOAM BE RUBBED ON FOR CRAMPS. APPLIED. PT DENIES FURTHER NEEDS. PRIMARY RN IN ROOM FOR MED ADMINISTRATION. CALL LIGHT IN REACH.
--- NOTE | 2020-08-03 21:01 | NUR ---
Up to br with 1pa just a few minutes ago, c/o abd pain, was medicated by another nurse with [place]. Pt back to bed. On room air, lungs clear, abd soft, tender, midline incision with every other parveen in place, and steri strips, pinkish area around umbilical/incisional area, no drainage, edges well approximated. active bowel tones, tolerating soft diet well, no c/o n/v. RCL patent, scds LE, baseline edema at ankles. voiding QS and had bm. uses call light, Warm blanket and fresh fluids given. calm, pleasant and cooperative.
--- NOTE | 2020-08-04 02:58 | NUR ---
RESTING, ON ROOM AIR, NO FURTHER C/O PAIN. IN BED, SCDS IN PLACE, CALL LIGHT AND FLUIDS AT BEDSIDE
--- NOTE | 2020-08-04 05:19 | NUR ---
PT WALKED HALLWAYS X1, TOLERATED WELL, UP TO BR WITH MINIMUM OF ASSIST. R CL PATENT, MIDLINE ABDOMINAL INCISION WITH ALTERNATING EVERY OTHER STAPLE AND STERI STRIPS, DRY, WELL APRROX, PASSING GAS AND HAD BMS THIS SHIFT. EDEMA AL ANKLES BASELINE. hAS BEEN MEDICATED PER C/O PAIN X1, WITH GOOD PAIN RELIEF. TURNS SELF IN BED. USES CALL LIGHT AND TOLERATING FLUIDS AND SOFT DIET
--- NOTE | 2020-08-04 05:32 | NUR ---
c/o 5/10 abd pain, passing gas, medicated with 1 norco. up to br, voiding qs yellow urine. sba/fww, tolerating well, warm blanked and fresh water given as requested
--- NOTE | 2020-08-04 08:30 | NUR ---
SBA UP TO RECLINER, IN GOOD SPIRITS THIS AM, STATES SHE IS HUNGRY, GOOD BOWEL SOUNDS, DENIES ANY NEEDS, MID LINE INCISION WELL APPROX.
--- NOTE | 2020-08-04 09:00 | NUR ---
DISCUSSED WITH DR HERNANDEZ ABOUT BLOOD PRESSURE AND BLOOD SUGAR THIS AM, INSTRUCTED GO AHEAD AND GIVE MEDS ORDERED.
--- NOTE | 2020-08-04 13:27 | NUR ---
REMAINING JORI REMOVED FROM MIDLINE INCISION. WELL APPROX. NO DRAINAGE.PT RESTING COMFORTABLY ON BED. CALL LIGHT IN EASY REACH.
--- NOTE | 2020-08-04 16:45 | NUR ---
RESTING COMFORTABLY ON BED, LOOKING FORWARD TO DINNER, DENIES ANY NEEDS.
--- NOTE | 2020-08-04 17:43 | NUR ---
UP FOR ALL MEALS, APPETITE IS BETTER TODAY, BLOOD SUGARS ARE IMPROVED AND NOW ON HOME DOSE OF INSULIN. MIN ASSIST WHEN UP OOB USING FWW, ALL JORI REMOVED FROM MIDLINE INCISION. GOOD PAIN CONTROL USING NORCO. BM TODAY.
--- NOTE | 2020-08-04 19:30 | NUR ---
BATHROOM LIGHT ANSWERED. PATIENT NEEDED UNDERWEAR AND FORD PAD. PROVIDED. PATIENT WAS BACK IN BED. PATIENT ASKED HELP TO PUT THERAFOAM/OTC ON HER BACK, SHOULDER, LEGS AND FEET. NO OTHER NEEDS AT THAT TIME.
--- NOTE | 2020-08-05 00:09 | NUR ---
WALKING HALLWAYS WITH MINIMUM OF ASSIST AND FWW, TOLERATED WELL, UP TO BR VOIDED QS. ABD INCISION WITH SS IN PLACE, BACK TO BED,
--- NOTE | 2020-08-05 00:23 | NUR ---
WALKED WITH PATIENT AROUND THE HALLWAY X1. PATIENT IS BACK IN BED. DIET SPRITE PROVIDED. NO OTHER NEEDS AT THIS TIME.
--- NOTE | 2020-08-05 00:53 | NUR ---
RESTING, EYES CLOSED, NO C/O PAIN NO DISTRESS, CALL LIGHT AT BEDSIDE
--- NOTE | 2020-08-05 04:25 | NUR ---
Pt currently resting, on room air. midline incision edges well approx, dry. slightly pinkish around umbilical area. some steri strips in place, all parveen were removed yesterday. abd soft, RACQUEL, passing gas and having bms. Up to BR independent, FWW, voiding QS and did own carlin care. Walked hallways tolerated well. Has been medicated 2X with [place], effective. uses call light and tolerting diabetic diet, CBG 167, received 1 unit ss insulin. R CL patent.
--- NOTE | 2020-08-05 06:30 | NUR ---
resting, eyes closed, no distress, repositions self in bed. call light and fluids at bedside
--- NOTE | 2020-08-05 08:03 | NUR ---
DR LEDESMA IN EARLY TO SEE PT, ORDERS NOTED FOR DC TO HOME TODAY, PT IS IN GOOD SPIRITS, MIN ASSIST UP TO RECLINER FOR BREAKFAST.
[2020-08-05] MEDS ORDERED: NORCO 5-325 TA1 EACH PO (08:20)
--- NOTE | 2020-08-05 09:00 | NUR ---
PT ONLY ATE A FEW BITE OF CEREAL THIS MORNING, STATES IT JUST DIDN'T TASTE GOOD, ASKED WHAT DOES SHE EAT AT HOME, AND PT SAYS SHE USUALLY HAS EGGS. ORDER PLACED FOR [employer] TO IMPROVE MEAL INTAKE. EXPLAINED TO PT IT IS IMPORTANT SHE EAT USUAL DIET SHE IS NOW ON HER ROUTINE INSULIN. PT STATES SHE UNDERSTANDS AND WILL EAT BREAKFAST.
--- NOTE | 2020-08-05 09:30 | NUR ---
SPOKE WITH ENGINEERING TEACHER. PATIENT IS INDEPENDENT IN ROOM. PATIENT DOES NOT WANT A WALKER. ENGINEERING TEACHER STATES SHE IS DISCHARGING AND HAS NO BARRIERS KNOWN. FAMILY HAS PLANNED TO COME GET HER LATER. WILL SEE IF NEEDED BEFORE DISCHARGE IF SOMETHING ARISES.
--- NOTE | 2020-08-05 09:34 | NUR ---
PATIENT SITTING UP IN CHAIR EATING BREAKFAST. PHARMACY IN ROOM AT THIS TIME TO GO OVER DISCHARGE STUFF. BLOOD PRESSURE LOW, RN NOTIFIED. CALL LIGHT IN REACH. NO FURTHER NEEDS AT THIS TIME.
--- NOTE | 2020-08-05 10:00 | NUR ---
SBA TO WALK IN HALLWAY, PT THINKS SHE IS GOING TO HAVE BM SOON SHE IS HAVING INCREASED ABD CRAMPING. LAID DOWN FOR NAP AFTER WALK.
--- NOTE | 2020-08-05 11:25 | NUR ---
RECEIVED CALL FROM KAYLYN AT [facility]. SHE STATES THEY DID NOT GET A DEMOGRAPHIC SHEET. FAXED FACESHEET TO HER WITH CONFIRMATION AT 1114AM.
--- NOTE | 2020-08-05 13:38 | NUR ---
PATIENT IN BED RESTING WITH EYES CLOSED. CALL LIGHT IN REACH. NO FURTHER NEEDS AT THIS TIME.
--- NOTE | 2020-08-05 14:55 | NUR ---
CENTRAL LINE DC'D INTACT, NO BLEEDING OR BRUISING AT SITE. DISCHARGE INSTRUCTION HAVE BEEN REVIEWED WITH PT, VERBALIZES UNDERSTANDING OF MEDICATIONS, SX TO REPORT AND FOLLOW UP APPOINTMENT. WANTS TO GET INTO SHOWER AT THIS TIME BEFORE RIDE HOME.
--- NOTE | 2020-08-05 15:00 | NUR ---
COMPLETED SHOWER, DRESSED AND READY TO GO HOME.
--- NOTE | 2020-08-06 06:48 | DS ---
[facility] [address] [place] [place], [place] [address] Signed ADMISSION DATE: 07/25/2020 DISCHARGE DATE: 08/05/2020 FINAL DIAGNOSES: 1. Distal small bowel obstruction. 2. Periumbilical incisional hernias x2. 3. Acute malnutrition. PROCEDURES: 1. Laparotomy, lysis of adhesions, small bowel resection with end-to-end hand-sewn anastomosis. 2. Primary repair of incisional hernias x2. 3. Placement of right subclavian triple-lumen catheter. HISTORY OF PRESENT ILLNESS: Vero is a 75, obese, diabetic female, who for a day and a half had periumbilical abdominal pain with nausea and vomiting. She gone to her primary care provider. She was sent to the emergency room for evaluation. Her labs were not particularly concerning. She had periumbilical pain. CT scan showed distal small bowel obstruction and at least one hernia below the umbilicus. I have been asked to admit her as a general surgeon on-call. HOSPITAL COURSE: Vero was admitted as above on . We had our hospitalist service see her as well. We got her blood pressure and blood sugars under control throughout and had her rehydrated. Then, the following morning, we were able to take her to the operating room for the laparotomy with lysis of adhesions. She required a 4 cm segment of her small bowel to be resected from her chronic adhesions and small bowel obstruction. It was brought back together end-to-end two layers hand-sewn. She also had one additional small hernia above the umbilicus and both of those had been closed primarily at the time of her surgery. We also placed a right subclavian triple-lumen catheter known, she was going to be in the hospital for quite some time with the inability to eat. After surgery, she has been on expected postoperative course. She is slowly, but surely regained her GI function. She is now up to a diabetic diet on her home medications including her insulin. Her blood sugars are much better controlled. Her abdominal exam is now benign. She has a little bit of redness around the umbilicus, but otherwise the incisions intact. She is having good bowel movements and flatus and perform her activities of daily living. At this point, we are going to be discharging her to home. DISCHARGE PLANS AND MEDICATIONS: Electronically Signed By: ALEISHA ELLIS MD 08/06/20 0648 PATIENT NAME: VERO ROBLES ANN DISCHARGE SUMMARY DATE OF : 47 REPORT #: [id number] PHYSICIAN: ALEISHA ELLIS MD PCP: [facility] REPORT IS CONFIDENTIAL AND NOT TO BE RELEASED WITHOUT AUTHORIZATION [facility] [address] [place], [place] [address] Signed Vero, we discharged to home with just a small prescription for [place] 5/325 one tablet p.o. q.6 hours p.r.n. for severe postoperative pain. We will dispense 10 tablets with no refills. Otherwise, she will continue the Tylenol p.r.n. for [id number] postoperative pain that she has here in the hospital, although she does intermittently request narcotics. She can purchase the Tylenol [id number]. She can resume all her chronic medications at home including her insulin. She should continue her 2000 calorie diabetic diet at home. I have asked her to avoid rough foods for at least a few weeks. She can continue her activities of daily living including walking up and down stairs and showering bathing as usual. She should not do any heavy pushing, pulling, or lifting over [address] if she is off narcotics. 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 I will see her back in my office in 7 to 10 days for followup. I reviewed this with Vero in detail. She has expressed understanding and agrees with the above plan. Aleisha Ellis MD ALB/MODL /[id number] cc: MD Fabrizio Summers PA Copies: ALEISHA ELLIS MD, BRYAN LEE PA ~ Electronically Signed By: ALEISHA ELLIS MD 08/06/20 0648 PATIENT NAME: VERO ROBLES ANN DISCHARGE SUMMARY DATE OF : 47 REPORT #: [id number] PHYSICIAN: ALEISHA ELLIS MD PCP: [facility] REPORT IS CONFIDENTIAL AND NOT TO BE RELEASED WITHOUT AUTHORIZATION
== END 2020-08-05 15:40 | disposition home or self-care (01) | DRG 330 ==
LOC: ED 11:07 → MS 15:27 → CCU 07-27 17:10 → MS 07-28 14:00
PROVIDERS: ADMIT Colon & Rectal Surgery; ATTEND Colon & Rectal Surgery
PROC: 0DBB0ZZ Excision of Ileum, Open Approach (ICD-10-PCS; principal; 2020-07-27 13:30)
PROC: 0WQF0ZZ Repair Abdominal Wall, Open Approach (ICD-10-PCS; 2020-07-27 13:30)
PROC: 02HV33Z Insertion of Infusion Device into Superior Vena Cava, Percutaneous Approach (ICD-10-PCS; 2020-07-27 13:30)
DX: K56.50 Intestinal adhesions [bands], unspecified as to partial versus complete obstruction (principal); E46 Unspecified protein-calorie malnutrition; I47.1 Supraventricular tachycardia; Z20.828 Contact with and (suspected) exposure to other viral communicable diseases; K43.2 Incisional hernia without obstruction or gangrene; E11.65 Type 2 diabetes mellitus with hyperglycemia; I25.10 Atherosclerotic heart disease of native coronary artery without angina pectoris; E55.9 Vitamin D deficiency, unspecified; E78.5 Hyperlipidemia, unspecified; E66.9 Obesity, unspecified; I10 Essential (primary) hypertension; G47.33 Obstructive sleep apnea (adult) (pediatric); N39.3 Stress incontinence (female) (male); K21.9 Gastro-esophageal reflux disease without esophagitis; Z68.38 Body mass index [BMI] 38.0-38.9, adult; Z79.82 Long term (current) use of aspirin; Z95.1 Presence of aortocoronary bypass graft; Z79.4 Long term (current) use of insulin; Z79.899 Other long term (current) drug therapy; Z88.8 Allergy status to other drugs, medicaments and biological substances; Z88.5 Allergy status to narcotic agent; Z91.041 Radiographic dye allergy status
CPT/HCPCS: 00790; 36415; 43752; 71045; 74176; 74250; 80048; 80053; 80061; 83690; 83735; 84100; 84134; 84484; 85025; 85610; 85730; 93005; 93010; 99285-25; C9113; C9803; J0131; J0330; J0696; J1100; J1170; J1650; J1720; J1815; J1885; J2250; J2405; J2550; J2704; J2765; J3010; J3430; J3475; J7030; J7121; U0003

== ENCOUNTER 2021-02-13 14:12 | Emergency (ER) | payer BC, OTHER ==
[~2021-02-13] VITALS: Ht 160 cm; Wt 99.3 kg
[~2021-02-13 14:12] MED LIST changes: +ATORVASTATIN CA80 MG PO; +METFORMIN HCL1000 MG PO; +METFORMIN HCL500 M1 PO
== END 2021-02-13 18:00 | disposition home or self-care (01) ==
LOC: ED 14:12
DX: U07.1 COVID-19 (principal); E11.9 Type 2 diabetes mellitus without complications; D64.9 Anemia, unspecified; Z88.8 Allergy status to other drugs, medicaments and biological substances; Z88.5 Allergy status to narcotic agent; Z88.6 Allergy status to analgesic agent; Z79.4 Long term (current) use of insulin; Z79.899 Other long term (current) drug therapy; Z79.82 Long term (current) use of aspirin
CPT/HCPCS: 99284-25; M0245

== ENCOUNTER 2021-03-18 15:23 | Emergency (ER) | payer BC, OTHER ==
[~2021-03-18] VITALS: Ht 160 cm; Wt 93.4 kg
[2021-03-18] MEDS ORDERED: HYDROCODON-ACE1 EA10 PO (19:14)
[2021-03-18] MEDS ORDERED: DOXYCYCLINE HY100 MG PO (19:14)
== END 2021-03-18 19:47 | disposition home or self-care (01) ==
LOC: ED 15:23
DX: L02.211 Cutaneous abscess of abdominal wall (principal); E11.9 Type 2 diabetes mellitus without complications; D64.9 Anemia, unspecified; Z88.8 Allergy status to other drugs, medicaments and biological substances; Z88.5 Allergy status to narcotic agent; Z88.6 Allergy status to analgesic agent; Z91.041 Radiographic dye allergy status; Z79.899 Other long term (current) drug therapy; Z79.82 Long term (current) use of aspirin; Z79.4 Long term (current) use of insulin
CPT/HCPCS: 10060; 99283-25